=== PATIENT | female | born 1965 | race Caucasian/White ===

== ENCOUNTER → 2018-09-28 | Outpatient (CLI) | payer OTHER ==
--- NOTE | 2018-09-29 08:27 | USB ---
Reason for exam: clinical finding. History: Patient has history of breast cancer at age 40. Mastectomy of both breasts, 2016. Lumpectomy of the right breast, 2015. Taking tamoxifen for 5 years. Indicated problem(s): palpable abnormality in the right breast. Physical Findings: Nurse Summary: palpable lump (nurse dw). US Breast RT Right complete breast ultrasound includes all four quadrants, the retroareolar region and axilla. Finding demonstrates a 0.4 x 0.3 x 0.1cm oval, node at 11 o'clock and a 1.2 x 0.7 x 0.8cm oval node at the axilla. Probable lymph nodes. These results were verbally communicated with the patient and result sheet given to the patient on 09/28/18. ASSESSMENT: Probably benign, BI-RAD 3 RECOMMENDATION: Ultrasound of the right breast in 3 months. Manage patient on a clinical basis.
== END | disposition home or self-care (01) ==
LOC: RADUSWWP 15:17
PROVIDERS: ATTEND Internal Medicine Hematology & Oncology
DX: N63.10 Unspecified lump in the right breast, unspecified quadrant (principal); Z85.3 Personal history of malignant neoplasm of breast; Z98.82 Breast implant status

== ENCOUNTER 2018-11-11 15:33 | Observation (INO) | payer OTHER ==
--- NOTE | 2018-11-11 16:46 | ED ---
General Adult HPI - General Chief complaint: Fever Stated complaint: Lethargic, Fever Time Seen by Provider: 11/11/18 16:02 Source: patient Mode of arrival: ambulatory Limitations: no limitations - History of Present Illness Initial comments: Dictation was produced using [employer] dictation software. please excuse any grammatical, word or spelling errors. Chief Complaint: 63-year-old female with past medical history of breast cancer with metastatic disease presents with chief complaint of feeling faint and fevers. History of Present Illness: 3-year-old female. She was sent in by her primary care physician for fevers. Patient currently undergoing active chemotherapy for breast cancer with metastatic disease. States that her symptoms have been ongoing for the last 2-3 days. She was at her primary care physician's office today when she began feeling faint. She was instructed to come to the emergency department. Patient did have a negative flu swab at her PCPs office. Patient has been having constitutional symptoms of fever, chills or night sweats. Oncologist is Dr. Turner. She's been having coughing. Denies any chest pain. No nausea vomiting or diarrhea. Denies any rashes. The ROS documented in this emergency department record has been reviewed and confirmed by me. Those systems with pertinent positive or negative responses have been documented in the HPI. All other systems are other negative and/or noncontributory. PHYSICAL EXAM: General Impression: Alert and oriented x3, not in acute distress HEENT: Normocephalic atraumatic, extra-ocular movements intact, pupils equal and reactive to light bilaterally, mucous membranes moist. Cardiovascular: Heart regular rate and rhythm, S1&S2 audible, no murmurs, rubs or gallops Chest: Lungs clear to auscultation bilaterally, no rhonchi, no wheeze, no rales, Mediport to the right chest Abdomen: Bowel sounds present, abdomen soft, non-tender, non-distended, no organomegaly Musculoskeletal: Pulses present and equal in all extremities, no peripheral edema Motor: no focal deficits noted Neurological: CN II-XII grossly intact, no focal motor or sensory deficits noted Skin: Intact with no visualized rashes Psych: Normal affect and mood ED course: 53-year-old female with past medical history of cancer, on chemotherapy presents with presyncopal symptoms, fever, chills and when her symptoms. Vital signs upon arrival shows heart rate of 12, respiratory signs within normal limits. Laboratory evaluation obtained. Mild leukopenia with a 30 be seen 3.5. Hemoccult stable at 11.2. Rest of CBC is unremarkable. Coag panel unremarkable. Metabolic panel is negative. Chest x-ray shows no radiographic evidence of pulmonary infection. Patient against having elevated temperatures. At this point no signs of end organ dysfunction in the setting of constitutional symptoms. Given active treatment with chemotherapy there is high degree of concern of possible serious bacterial illness however at this point there is no objective evidence to suggest its source. Patient however clinically is having pulmonary symptoms. There is a potential that patient's symptoms reflect pneumonia without radiographic evidence. Patient given 1 dose of vancomycin and cefepime. Blood cultures and urine cultures are sent. Patient be admitted to the hospital for monitoring, intravenous fluids. Patient be admitted to Dr. Marquez consultation to oncology. EKG interpretation: Ventricular rate 70, normal sinus rhythm,. Interval 150, QRS 74, QTC 417. No SD prolongation, no QTC prolongation, no ST or T-wave changes noted. Overall, this EKG is unremarkable - Related Data Home Medications Medication Instructions Recorded Confirmed Capecitabine [Xeloda] 1,000 mg PO DIRECTED 11/11/18 11/11/18 Capecitabine [Xeloda] 150 mg PO DIRECTED 11/11/18 11/11/18 Iron(Unknown) 1 tab PO DAILY 11/11/18 11/11/18 Multivitamins, Thera [Multivitamin 1 tab PO DAILY 11/11/18 11/11/18 (formulary)] Vitamin D3(Unknown) 1 tab PO DAILY 11/11/18 11/11/18 Xgeva 120 mg SQ Q28D 11/11/18 11/11/18 Allergies Allergy/AdvReac Type Severity Reaction Status Date / Time amoxicillin Allergy Rash/Hives Verified 11/11/18 16:16 Review of Systems ROS Statement: Those systems with pertinent positive or pertinent negative responses have been documented in the HPI. ROS Other: All systems not noted in ROS Statement are negative. Past Medical History Additional Past Medical History / Comment(s): Breast cancer with metastisis to the bone History of Any Multi-Drug Resistant Organisms: None Reported Additional Past Surgical History / Comment(s): Mastectomy (bilateral), lymph nodes removed from right side, meningioma removed, Past Psychological History: No Psychological Hx Reported Smoking Status: Never smoker Past Alcohol Use History: None Reported Past Drug Use History: None Reported General Exam Limitations: no limitations Course Vital Signs 11/11/18 11/11/18 15:44 17:31 Temperature 99.0 F 100.5 F H Pulse Rate 102 H 75 Respiratory 18 18 Rate Blood Pressure 112/68 99/61 O2 Sat by Pulse 97 98 Oximetry Medical Decision Making - Lab Data Result diagrams: 11/11/18 14:35 11/11/18 14:35 Lab Results 11/11/18 11/11/18 11/11/18 Range/Units 14:35 14:35 14:35 WBC 3.5 L (3.8-10.6) k/uL RBC 3.49 L (3.80-5.40) m/uL Hgb 11.2 L (11.4-16.0) gm/dL Hct 33.2 L (34.0-46.0) % MCV 95.3 (80.0-100.0) fL MCH 32.0 (25.0-35.0) pg MCHC 33.6 (31.0-37.0) g/dL RDW 17.0 H (11.5-15.5) % Plt Count 223 (150-450) k/uL Neutrophils % 73 % Lymphocytes % 10 % Monocytes % 12 % Eosinophils % 1 % Basophils % 0 % Neutrophils # 2.6 (1.3-7.7) k/uL Lymphocytes # 0.4 L (1.0-4.8) k/uL Monocytes # 0.4 (0-1.0) k/uL Eosinophils # 0.0 (0-0.7) k/uL Basophils # 0.0 (0-0.2) k/uL Anisocytosis Slight PT 10.6 (9.0-12.0) sec INR 1.0 (<1.2) Sodium 137 (137-145) mmol/L Potassium 4.1 (3.5-5.1) mmol/L Chloride 105 (98-107) mmol/L Carbon Dioxide 22 (22-30) mmol/L Anion Gap 10 mmol/L BUN 20 H (7-17) mg/dL Creatinine 0.55 (0.52-1.04) mg/dL Est GFR (CKD-EPI)AfAm >90 (>60 ml/min/1.73 sqM) Est GFR (CKD-EPI)NonAf >90 (>60 ml/min/1.73 sqM) Glucose 91 (74-99) mg/dL Calcium 8.9 (8.4-10.2) mg/dL Magnesium 2.0 (1.6-2.3) mg/dL Total Bilirubin 0.5 (0.2-1.3) mg/dL AST 90 H (14-36) U/L ALT 54 H (9-52) U/L Alkaline Phosphatase 80 (38-126) U/L Total Protein 6.9 (6.3-8.2) g/dL Albumin 4.0 (3.5-5.0) g/dL Disposition Clinical Impression: Fever, Cough Disposition: ADMITTED IP TO THIS HOSP Condition: Fair Referrals: Mahin Wilkinson DO [Primary Care Provider] - 1-2 days Decision Time: 17:44
[2018-11-11 16:50] LABS: Anisocytosis Slight; Basophils % (A) 0 %; Eosinophils % (A) 1 %; HCT 33.2 % (34.0-46.0); HGB 11.2 gm/dL (11.4-16.0); Lymphocytes # (A) 0.4 k/uL (1.0-4.8); Lymphocytes % (A) 10 %; MCHC 33.6 g/dL (31.0-37.0); MCV 95.3 fL (80.0-100.0); Mean Platelet Volume 6.5; Monocytes # (A) 0.4 k/uL (0-1.0); Monocytes % (A) 12 %; Neutrophils # (A) 2.6 k/uL (1.3-7.7); Neutrophils % (A) 73 %; Platelet Count 223 k/uL (150-450); RBC 3.49 m/uL (3.80-5.40); WBC 3.5 k/uL (3.8-10.6)
[2018-11-11 16:59] LABS: ALT 54 U/L (9-52); AST 90 U/L (14-36); Alkaline Phosphatase 80 U/L (38-126); Anion Gap 10 mmol/L; Blood Urea Nitrogen 20 mg/dL (7-17); Calcium 8.9 mg/dL (8.4-10.2); Carbon Dioxide 22 mmol/L (22-30); Chloride 105 mmol/L (98-107); Glucose 91 mg/dL (74-99); Potassium 4.1 mmol/L (3.5-5.1); Prothrombin Time 10.6 sec (9.0-12.0); Sodium 137 mmol/L (137-145); Total Bilirubin 0.5 mg/dL (0.2-1.3); Total Protein 6.9 g/dL (6.3-8.2)
--- NOTE | 2018-11-11 17:19 | XR ---
EXAMINATION TYPE: XR chest 2V DATE OF EXAM: 11/11/2018 COMPARISON: 04/08/2016 HISTORY: Fever and lethargy TECHNIQUE: Frontal and lateral views of the chest are obtained. FINDINGS: There is no heart failure nor confluent pneumonic infiltrate. Heart size is normal. There is right central venous catheter with the tip in the right atrium. There is no pleural effusion. Ther e is 20% compression deformity of T9 vertebra unchanged. IMPRESSION: No active cardiopulmonary disease. No change.
[2018-11-11] MEDS ORDERED: SODIUM CHLORIDE 0.9% 1,000 ML IV STA (17:24)
[2018-11-11] MEDS ORDERED: ACETAMINOPHEN TAB 500 MG TAB PO STA (17:35)
[2018-11-11] MEDS ORDERED: NALOXONE 0.4 MG/ML 1 ML VIAL IV PRN (17:38)
[2018-11-11] MEDS ORDERED: ONDANSETRON 4 MG/2 ML VIAL IVP PRN (17:38)
[2018-11-11] MEDS ORDERED: ACETAMINOPHEN TAB 325 MG TAB PO PRN (17:38)
[2018-11-11] MEDS ORDERED: CEFEPIME 2 GM in SODIUM CHLORIDE 0.9% 100 ML IVPB STA (17:40)
[2018-11-11] MEDS ORDERED: VANCOMYCIN 1,000 MG in SODIUM CHLORIDE 0.9% 250 ML IVPB STA (17:41)
[2018-11-11 18:11] LABS: Appearance,Urine Clear (Clear); Bilirubin,Urine Negative (Negative); Blood,Urine Negative (Negative); Color,Urine Yellow; Glucose,Urine (UA) Negative (Negative); Ketones,Urine 2+ (Negative); Leukocyte Esterase,Urine Negative (Negative); Nitrite,Urine Negative (Negative); PH, Urine 5.5 (5.0-8.0); Protein,Urine Trace (Negative); Specific Gravity,Urine 1.019 (1.001-1.035); Urobilinogen,Urine <2.0 mg/dL (<2.0)
[2018-11-11] MEDS: SODIUM CHLORIDE 0.9% 1,000 ML IV SCH (18:51)
[2018-11-11] MEDS: CAPECITABINE PO SCH (20:51)
[2018-11-11] MEDS: FAMOTIDINE 20 MG TAB PO SCH (20:51)
[2018-11-12] MEDS: FAMOTIDINE 20 MG TAB PO SCH ×2 (07:01→21:46)
[2018-11-12] MEDS: SODIUM CHLORIDE 0.9% 1,000 ML IV SCH ×2 (07:03→18:26)
[2018-11-12] MEDS: CAPECITABINE PO SCH (09:22)
[2018-11-12 11:21] VITALS: BMI 20.8
[2018-11-12 14:00] LABS: ALT 46 U/L (9-52); AST 71 U/L (14-36); Albumin 3.3 g/dL (3.5-5.0); Alkaline Phosphatase 69 U/L (38-126); Anion Gap 8 mmol/L; Blood Urea Nitrogen 11 mg/dL (7-17); Calcium 7.9 mg/dL (8.4-10.2); Carbon Dioxide 21 mmol/L (22-30); Chloride 112 mmol/L (98-107); Glucose 109 mg/dL (74-99); Potassium 3.7 mmol/L (3.5-5.1); Sodium 141 mmol/L (137-145); Total Bilirubin 0.3 mg/dL (0.2-1.3); Total Protein 5.8 g/dL (6.3-8.2)
[2018-11-12 14:02] LABS: Anisocytosis Slight; Basophils % (A) 1 %; Eosinophils % (A) 1 %; HCT 29.6 % (34.0-46.0); Lymphocytes # (A) 0.5 k/uL (1.0-4.8); Lymphocytes % (A) 18 %; MCH 31.5 pg (25.0-35.0); MCV 95.7 fL (80.0-100.0); Mean Platelet Volume 6.8; Monocytes # (A) 0.3 k/uL (0-1.0); Monocytes % (A) 11 %; Neutrophils # (A) 1.7 k/uL (1.3-7.7); Neutrophils % (A) 68 %; Platelet Count 209 k/uL (150-450); RBC 3.09 m/uL (3.80-5.40); RDW 16.9 % (11.5-15.5); WBC 2.6 k/uL (3.8-10.6)
[2018-11-12 14:06] LABS: HGB 9.7 gm/dL (11.4-16.0)
--- NOTE | 2018-11-12 16:19 | P.CONS ---
History of Present Illness - Reason for Consult Consult date: 11/12/18 Fever, Metastatic breast cancer on chemo - History of Present Illness The patient is a 53-year-old lady, well known to our service. She has a history of metastatic breast cancer, and has been on oral Xeloda since 05/18. The patient came into the hospital complaining of not feeling well over the last 2-3 days. She had been having fevers, and generally feeling weak to the point of occasionally being presyncopal. She states that at home her fevers were as high as 102. She denied any chills/sweats/abdominal pain/cough/burning in the urine/skin ulcers. In the emergency room t T-max was 100.5. His chest x-ray and UA were essentially negative. WBC was mildly reduced but ANC is greater than 1000. She was therefore admitted for further management, and consult placed She has a complicated past medical and surgical history. 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 She had resection of a menigioma in 1993 on the same side, and received stereotactic RT in 1997. 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 She was then on Tamoxifen from 08/04 to 08/09 with good tolerance. She continued f/u with Dr Mclaughlin, and was felt to have no change on exam or mammogram done around 02/12. However, her OB felt that her scar had changed, and there was a new mass. She thus had an US on 03/07/15 which noted a 1.2 x 1 x 1.8 cm irregular ill-defined area at 8 0'clock, underlying her previous scar. She was seen by Dr Calle and had a needle core biopsy in the office on 03/12/15, which was positive for invasive ductal carcinoma, grade II, ER/LA positive, Her- 2 2+ by IHC, but negative by FISH. She was then referred here for further evaluation and recommendations. She was premenopausal at the time of her DCIS diagnosis, and perimenopausal at her visit on 03/29/15. She had bilateral mastectomy 05/15, revealing a 2.5 cm with micrometastasis in 1 axillary node. Genetic testing revealed PALB2 mutation. She was treated with Cytoxan and Taxotere adjuvantly, completing that in 07/15. She was then placed on Femara. She progressed in 08/15, and since then has had multiple lines of therapy, including Faslodex, Ibrance plus Faslodex, Eribulin, and then Xeloda since 05/18. She has bone only metastatic disease. Review of Systems Constitutional: Reports chronic pain, Reports fever, Reports malaise Eyes: denies blurred vision, denies pain Ears: deny: decreased hearing, ear discharge, earache, tinnitus Ears, nose, mouth and throat: Denies headache, Denies sore throat Breasts: absent: as per HPI Breasts: Reports as per HPI Cardiovascular: Denies chest pain, Denies shortness of breath Respiratory: Denies cough Gastrointestinal: Denies abdominal pain, Denies diarrhea, Denies nausea, Denies vomiting Genitourinary: Denies dysuria, Denies hematuria Menstruation: Reports postmenopausal Musculoskeletal: Reports as per HPI Musculoskeletal: right: hip pain Integumentary: Reports color changes (hand foot syndrome due to Xeloda ) Neurological: Denies numbness, Denies weakness Psychiatric: Denies anxiety, Denies depression Endocrine: Reports fatigue Hematologic/Lymphatic: Reports as per HPI 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, ear surgery, facial nerve surgery in [place] History of Any Multi-Drug Resistant Organisms: None Reported Additional Past Surgical History / Comment(s): Mastectomy (bilateral), lymph nodes removed from right side, meningioma removed, Past Anesthesia/Blood Transfusion Reactions: No Reported Reaction Past Psychological History: No Psychological Hx Reported Smoking Status: Never smoker Past Alcohol Use History: None Reported Past Drug Use History: None Reported - Past Family History Mother Family Medical History: Diabetes Mellitus, Thyroid Disorder Medications and Allergies Home Medications Medication Instructions Recorded Confirmed Type Capecitabine [Xeloda] 1,000 mg PO Q12HR 11/11/18 11/11/18 History Capecitabine [Xeloda] 150 mg PO DIRECTED 11/11/18 11/11/18 History Iron(Unknown) 1 tab PO DAILY 11/11/18 11/11/18 History Methimazole 2.5 mg PO DAILY 11/11/18 11/11/18 History Multivitamins, Thera [Multivitamin 1 tab PO DAILY 11/11/18 11/11/18 History (formulary)] Vitamin D3(Unknown) 1 tab PO DAILY 11/11/18 11/11/18 History Xgeva 120 mg SQ Q28D 11/11/18 11/11/18 History Cholecalciferol [Vitamin D3] 1,000 unit PO DAILY 11/12/18 11/12/18 History Ferrous Sulfate [Iron] 1 tab PO DAILY 11/12/18 11/12/18 History Allergies Allergy/AdvReac Type Severity Reaction Status Date / Time amoxicillin Allergy Rash/Hives Verified 11/11/18 16:16 Physical Exam Vitals: Vital Signs Temp Pulse Pulse Resp BP BP Pulse Ox 11/12/18 05:41 98.6 F 79 18 104/65 97 11/11/18 20:59 97.7 F 67 18 98/53 96 11/11/18 18:22 98.8 F 75 16 100/65 99 11/11/18 17:31 100.5 F H 75 18 99/61 98 11/11/18 17:20 16 11/11/18 15:44 99.0 F 102 H 18 112/68 97 Intake and Output 11/11/18 11/12/18 11/12/18 22:59 06:59 14:59 Intake Total 120 Balance 120 Intake: Oral 120 Other: # Voids 2 2 Weight 51.71 kg - Constitutional General appearance: no acute distress - EENT Eyes: EOMI, PERRLA ENT: hearing grossly normal, normal oropharynx - Neck Neck: no lymphadenopathy Thyroid: bilateral: normal size - Respiratory Respiratory: bilateral: CTA - Cardiovascular Rhythm: regular Heart sounds: normal: S1, S2 - Gastrointestinal General gastrointestinal: normal bowel sounds, soft - Integumentary Evidence of hand-foot syndrome affecting both hands and feet. Increased redness, and desquamation. No active ulcers or lacerations - Neurologic Neurologic: CNII-XII intact - Musculoskeletal Musculoskeletal: generalized weakness, strength equal bilaterally - Psychiatric Psychiatric: A&O x's 3, appropriate affect Results CBC & Chem 7: 11/12/18 13:41 11/12/18 13:41 Labs: Abnormal Lab Results - Last 24 Hours (Table) 11/11/18 11/11/18 11/11/18 Range/Units 14:35 14:35 17:47 WBC 3.5 L (3.8-10.6) k/uL RBC 3.49 L (3.80-5.40) m/uL Hgb 11.2 L (11.4-16.0) gm/dL Hct 33.2 L (34.0-46.0) % RDW 17.0 H (11.5-15.5) % Lymphocytes # 0.4 L (1.0-4.8) k/uL BUN 20 H (7-17) mg/dL AST 90 H (14-36) U/L ALT 54 H (9-52) U/L Urine Protein Trace H (Negative) Urine Ketones 2+ H (Negative) Microbiology - Last 24 Hours (Table) 11/11/18 17:47 Urine Culture - Preliminary Urine,Voided Chest x-ray: report reviewed Assessment and Plan (1) Fever Narrative/Plan: The patient is presenting with fever, of unknown origin. She has no localizing signs. Physical exam is fairly benign. Fever pattern has improved since admission. Chest x-ray and urine are negative. OV with empiric antibiotics and blood cultures. If the results, and cultures remain negative, she can be discharged on oral antibiotics. If fever persists with no other source, then additional workup can be considered Current Visit: Yes Status: Acute Code(s): R50.9 - FEVER, UNSPECIFIED SNOMED Code(s): 498406043 (2) Bicytopenia Narrative/Plan: Due to chemotherapy. WBC is reduced but ANC is greater than 1000. Hemoglobin is also in a safe range at 9.6. Continue to monitor and supplement as needed Current Visit: Yes Status: Acute Code(s): D75.89 - OTHER SPECIFIED DISEASES OF BLOOD AND BLOOD-FORMING ORGANS SNOMED Code(s): 808494562 (3) Breast cancer metastasized to bone Narrative/Plan: Diagnostic and therapeutic circumstances as described. Hold Xeloda while in the hospital Current Visit: Yes Status: Acute Code(s): C50.919 - MALIGNANT NEOPLASM OF UNSP SITE OF UNSPECIFIED FEMALE BREAST; C79.51 - SECONDARY MALIGNANT NEOPLASM OF BONE SNOMED Code(s): 046138156
[2018-11-12] MEDS: IBUPROFEN 800 MG TAB PO PRN (19:33)
[2018-11-12] MEDS: OSELTAMIVIR 75 MG CAP PO SCH (21:47)
[2018-11-13] MEDS: SODIUM CHLORIDE 0.9% 1,000 ML IV SCH (06:06)
[2018-11-13] MEDS: FAMOTIDINE 20 MG TAB PO SCH (08:08)
[2018-11-13] MEDS: OSELTAMIVIR 75 MG CAP PO SCH (08:09)
[2018-11-13] MEDS ORDERED: FERROUS SULFATE 325 MG TAB PO SCH (09:00)
[2018-11-13] MEDS ORDERED: CHOLECALCIFEROL 1,000 UNIT TAB PO SCH (09:00)
[2018-11-13] MEDS ORDERED: METHIMAZOLE 5 MG TAB PO SCH (09:00)
[2018-11-13] MEDS: IBUPROFEN 800 MG TAB PO PRN (12:43)
[2018-11-13 13:40] VITALS: BP 154/69; PULSE 77; RESP 18; TEMP 97.7
--- NOTE | 2018-11-19 11:23 | HP ---
HISTORY AND PHYSICAL CHIEF COMPLAINT: A 53-year-old white female was admitted with breast cancer, metastatic disease, feeling faint and feverish, transferred down from physician's office today in the emergency room due to worsening fever and possibly oncology consult and to rule out any kind of sepsis. She states [place] doctor[place]. They will be repeated here today. REVIEW OF SYSTEMS: Fourteen-point review of systems negative except for as mentioned in HPI. EKG sinus rhythm. CARDIOVASCULAR: S1, S2. LUNGS: Clear. GI: Soft. HEMATOLOGY: Negative Homans. PSYCH: Fair mood and affect. NEUROLOGIC: Alert and orient x3. VASCULAR: Normal dorsalis pedis and posterior tibial and radial pulses. Home medications are Xeloda, multivitamins. ASSESSMENT: Acute febrile illness, rule out flu symptoms, rule out sepsis. Empiric antibiotics will be started. AINSLEY / REY: [id number] /
--- NOTE | 2018-11-19 11:59 | DS ---
DISCHARGE SUMMARY DISCHARGE MEDICATIONS: 1. XGEVA 120 mg subcu q. 28 hours. 2. Multivitamin daily. 3. Xeloda 150 mg daily. 4. 1000 mg b.i.d. 5. Methimazole 2.5 mg daily. 6. Iron sulfate 325 daily. 7. Vitamin D 1000 unit daily. CONDITION: Stable. PROGNOSIS: Guarded. Ambulate as tolerated. HOSPITAL COURSE OF EVENTS: This is a white female, was admitted with acute febrile illness and septic workup, flu positive for influenza A. She was started on Tamiflu 75 b.i.d. for 5 days. Patient was ruled out for sepsis. Follow up as outpatient. After treatment for 2 to 3 days, sepsis was ruled out. MMESPINOZAL / MAXIMON: [id number] /
== END 2018-11-13 16:11 | disposition home or self-care (01) ==
LOC: EC 15:33 → 3NMEDONC 18:02 → INTOOBSV 11-12 08:59 → OBSVTOIN 11-12 08:59 → UNDODISIN 11-13 16:11
PROVIDERS: ADMIT Family Medicine; ATTEND Family Medicine
DX: J10.1 Influenza due to other identified influenza virus with other respiratory manifestations (principal); C79.51 Secondary malignant neoplasm of bone; D70.1 Agranulocytosis secondary to cancer chemotherapy; L27.1 Localized skin eruption due to drugs and medicaments taken internally; T45.1X5A Adverse effect of antineoplastic and immunosuppressive drugs, initial encounter; Z17.0 Estrogen receptor positive status [ER+]; C50.919 Malignant neoplasm of unspecified site of unspecified female breast; Z79.83 Long term (current) use of bisphosphonates; Z79.899 Other long term (current) drug therapy; Z88.0 Allergy status to penicillin; Z90.13 Acquired absence of bilateral breasts and nipples; Z86.61 Personal history of infections of the central nervous system; Z86.011 Personal history of benign neoplasm of the brain; Z85.858 Personal history of malignant neoplasm of other endocrine glands; Z92.3 Personal history of irradiation; Z83.3 Family history of diabetes mellitus; Z83.49 Family history of other endocrine, nutritional and metabolic diseases
CPT/HCPCS: 96361 ×3; 96366; 96375; 96365; 96367; 99284; 36415; 93005; 80053 ×2; 83605; 83735; 85025 ×2; 85610; 81003; 87040; 87086; 87502; 71046; G0378 ×4; J3370; J0692; J1642

== ENCOUNTER → 2019-10-13 | Outpatient (CLI) | payer OTHER ==
--- NOTE | 2019-10-13 13:00 | XR ---
EXAMINATION TYPE: XR pelvis AP view DATE OF EXAM: 10/13/2019 CLINICAL HISTORY: Breast carcinoma with pain TECHNIQUE: A single AP view of the pelvis is obtained. COMPARISON: None. FINDINGS: There is mottled appearance of the visualized pelvic osseous structures and proximal femor a as well as the lower lumbar spine compatible with metastatic disease. There is no acute fracture/di slocation evident in the pelvis. The hip and sacroiliac joints appear symmetric and unremarkable. T he overlying soft tissue appears unremarkable. IMPRESSION: There is no acute fracture or dislocation in the pelvis. Findings are compatible with me tastatic disease.
== END | disposition home or self-care (01) ==
LOC: RADXRMAIN 11:17
PROVIDERS: ATTEND Internal Medicine Hematology & Oncology
DX: Z51.11 Encounter for antineoplastic chemotherapy (principal); C50.511 Malignant neoplasm of lower-outer quadrant of right female breast; C79.51 Secondary malignant neoplasm of bone
CPT/HCPCS: 72170

== ENCOUNTER → 2020-01-24 | Outpatient (CLI) | payer OTHER ==
--- NOTE | 2020-01-24 14:21 | US ---
EXAMINATION TYPE: US venous doppler duplex LE RT DATE OF EXAM: 01/24/2020 1:25 PM COMPARISON: NONE CLINICAL HISTORY: Swelling of R lower extremity R22.41. Edema SIDE PERFORMED: Right TECHNIQUE: The lower extremity deep venous system is examined utilizing real time linear array sonog lencho with graded compression, doppler sonography and color-flow sonography. VESSELS IMAGED: External Iliac Vein (EIV) Common Femoral Vein Deep Femoral Vein Greater Saphenous Vein * Femoral Vein Popliteal Vein Small Saphenous Vein * Proximal Calf Veins (* superficial vessels) Grayscale, color doppler, spectral doppler imaging performed of the deep veins of the right lower ext remity. There is normal flow, compressibility, vascular waveforms. Right Leg: Negative for DVT IMPRESSION: No sonographic evidence of deep venous thrombosis within the right lower extremity.
== END | disposition home or self-care (01) ==
LOC: LABWHC1 12:54
PROVIDERS: ATTEND Internal Medicine Hematology & Oncology
DX: R22.41 Localized swelling, mass and lump, right lower limb (principal); Z88.0 Allergy status to penicillin

== ENCOUNTER 2020-02-11 00:21 | Emergency (ER) | payer OTHER ==
[2020-02-11 00:51] VITALS: TEMP 97.7
[2020-02-11] MEDS ORDERED: SODIUM CHLORIDE 0.9% 500 ML 500 ML IV ONE (01:06)
[2020-02-11] MEDS ORDERED: fentaNYL (PF) 50 MCG/ML 2 ML AMP IVP STA ×2 (01:11→02:19)
[2020-02-11] MEDS ORDERED: SODIUM CHLORIDE 0.9% 1,000 ML IV ONE (01:32)
--- NOTE | 2020-02-11 01:34 | XR ---
EXAMINATION TYPE: XR ankle complete LT DATE OF EXAM: 02/11/2020 COMPARISON: NONE HISTORY: Foot pain. Ankle pain TECHNIQUE: 3 views FINDINGS: I see no fracture nor dislocation. Ankle mortise is anatomic. There are surgical clips over the lateral malleolus. There is lateral soft tissue swelling. IMPRESSION: Lateral swelling. No fracture seen.
--- NOTE | 2020-02-11 01:39 | XR ---
EXAMINATION TYPE: XR foot complete LT DATE OF EXAM: 02/11/2020 COMPARISON: None HISTORY: Pain TECHNIQUE: 3 views FINDINGS: Metatarsals are intact. I see no fracture nor dislocation. Joint spaces are fairly normal. There is accessory ossicle at the medial navicular. IMPRESSION: No acute abnormality of the left foot. No fracture seen.
--- NOTE | 2020-02-11 01:40 | XR ---
EXAMINATION TYPE: XR chest 1V DATE OF EXAM: 02/11/2020 COMPARISON: 11/11/2018 HISTORY: Chest pain TECHNIQUE: FINDINGS: Heart and mediastinum are normal. Lungs appear clear of infiltrate. There is right central venous catheter with tip in the superior vena cava. There is no pleural effusion. There are no hilar masses. Bony thorax appears intact. IMPRESSION: No active cardiopulmonary disease. No change.
[2020-02-11 01:46] LABS: Anisocytosis Slight; HCT 34.4 % (34.0-46.0); MCV 96.9 fL (80.0-100.0); Macrocytosis Slight; Mean Platelet Volume 7.1; Platelet Count 266 k/uL (150-450); RBC 3.55 m/uL (3.80-5.40); RDW 17.3 % (11.5-15.5)
[2020-02-11 01:59] LABS: ALT 27 U/L (4-34); AST 124 U/L (14-36); African American GFR (CKD) >90 (>60 ml/min/1.73 sqM); Albumin 3.6 g/dL (3.5-5.0); Alkaline Phosphatase 151 U/L (38-126); Anion Gap 8 mmol/L; Blood Urea Nitrogen 22 mg/dL (7-17); Calcium 9.7 mg/dL (8.4-10.2); Carbon Dioxide 23 mmol/L (22-30); Chloride 103 mmol/L (98-107); Glucose 130 mg/dL (74-99); Magnesium 1.8 mg/dL (1.6-2.3); Non-African American GFR(CKD) >90 (>60 ml/min/1.73 sqM); Phosphorus 3.8 mg/dL (2.5-4.5); Potassium 3.9 mmol/L (3.5-5.1); Sodium 134 mmol/L (137-145); Total Bilirubin 0.4 mg/dL (0.2-1.3); Total Protein 6.4 g/dL (6.3-8.2)
--- NOTE | 2020-02-11 02:07 | US ---
EXAMINATION TYPE: US venous doppler duplex LE DATE OF EXAM: 02/11/2020 1:56 AM COMPARISON: NONE CLINICAL HISTORY: bilateral leg swelling. edema left ankle SIDE PERFORMED: bilateral TECHNIQUE: The lower extremity deep venous system is examined utilizing real time linear array sonog lencho with graded compression, doppler sonography and color-flow sonography. VESSELS IMAGED: External Iliac Vein (EIV) Common Femoral Vein Deep Femoral Vein Greater Saphenous Vein * Femoral Vein Popliteal Vein Small Saphenous Vein * Proximal Calf Veins (* superficial vessels) Right Leg: no evidence of DVT Left Leg: no evidence of DVT IMPRESSION: No evidence of deep vein thrombosis in both legs.
[2020-02-11 02:19] VITALS: RESP 18
[2020-02-11 02:20] VITALS: BP 99/61; PULSE 75
[2020-02-11 02:25] LABS: Band Neutrophils % 16 %; Eosinophils # (M) 0.05 k/uL (0-0.7); Metamyelocytes % 5 %; Myelocytes # (M) 0.05 k/uL (0); Myelocytes % 1 %; Neutrophils % (M) 48 %; Nucleated Red Blood Cells 3 /100 WBC (0-0); Total Cells Counted 200
[2020-02-11 02:26] LABS: Metamyelocytes # (M) 0.25 k/uL (0); Monocytes # (M) 0.75 k/uL (0-1.0)
--- NOTE | 2020-02-11 03:22 | ED ---
General Adult HPI - General Chief complaint: Extremity Problem,Nontraumatic Stated complaint: Left ankle swelling Time Seen by Provider: 02/11/20 00:56 Source: patient, family Mode of arrival: ambulatory Limitations: physical limitation - History of Present Illness Initial comments: 54-year-old female patient past medical history significant for metastatic breast cancer presents ED for chief complaint of left foot and ankle pain. Patient reports that she was very active today helping set up around the house. She reports that approximately 7 PM she began experiencing left ankle pain. Reports that has progressed and now she is having significant discomfort. Patient port that she has some swelling of both of her legs. Reports that this has been ongoing for a period of weeks. She denies any chest pain or shortness of breath. Denies any other areas of pain. Systemic: Pt denies fatigue, fever/chills, rash. Pt denies weakness, night sweats, weight loss. Neuro: Pt denies headache, visual disturbances, syncope or pre-syncope. HEENT: Pt denies ocular discharge or irritation, otalgia, rhinorrhea, pharyngitis or notable lymphadenopathy. Cardiopulmonary: Pt denies chest pain, SOB, heart palpitations, dyspnea on exertion. Abdominal/GI: Pt denies abdominal pain, n/v/d. : Pt denies dysuria, burning w/ urination, frequency/urgency. Denies new onset urinary or bowel incontinence. MSK: Pt denies loss of strength or function in extremities. Neuro: Pt denies new onset weakness, paresthesias. - Related Data Home Medications Medication Instructions Recorded Confirmed Capecitabine [Xeloda] 1,000 mg PO Q12HR 11/11/18 11/11/18 Capecitabine [Xeloda] 150 mg PO DIRECTED 11/11/18 11/11/18 Iron(Unknown) 1 tab PO DAILY 11/11/18 11/11/18 Methimazole 2.5 mg PO DAILY 11/11/18 11/11/18 Multivitamins, Thera [Multivitamin 1 tab PO DAILY 11/11/18 11/11/18 (formulary)] Vitamin D3(Unknown) 1 tab PO DAILY 11/11/18 11/11/18 Xgeva 120 mg SQ Q28D 11/11/18 11/11/18 Cholecalciferol [Vitamin D3] 1,000 unit PO DAILY 11/12/18 11/12/18 Ferrous Sulfate [Iron] 1 tab PO DAILY 11/12/18 11/12/18 Previous Rx's Medication Instructions Recorded Hydrocodone/Acetaminophen [[place] 1 each PO Q6HR PRN 3 Days #12 tab 02/11/20 5-325] Allergies Allergy/AdvReac Type Severity Reaction Status Date / Time amoxicillin Allergy Rash/Hives Verified 02/11/20 00:52 Review of Systems ROS Statement: Those systems with pertinent positive or pertinent negative responses have been documented in the HPI. ROS Other: All systems not noted in ROS Statement are negative. 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, ear surgery, facial nerve surgery in [place] History of Any Multi-Drug Resistant Organisms: None Reported Additional Past Surgical History / Comment(s): Mastectomy (bilateral), lymph nodes removed from right side, meningioma removed, Past Anesthesia/Blood Transfusion Reactions: No Reported Reaction Past Psychological History: No Psychological Hx Reported Smoking Status: Never smoker Past Alcohol Use History: None Reported Past Drug Use History: None Reported - Past Family History Mother Family Medical History: Diabetes Mellitus, Thyroid Disorder General Exam - General Exam Comments Initial Comments: Constitutional: NAD, AOX3, Pt has pleasant affect. HEENT: NC/AT, trachea midline, neck supple, no lymphadenopathy. Posterior pharynx non erythematous, without exudates. External ears appear normal, without discharge. Mucous membranes moist. Eyes PERRLA, EOM intact. There is no scleral icterus. No pallor noted. Cardiopulmonary: RRR, no murmurs, rubs or gallops, no JVD noted. Lungs CTAB in anterior and posterior chicas. Abdominal exam: Abdomen soft and non-distended. Abdomen non-tender to palpation in all 4 quadrants. Bowel sounds active in LLQ. No hepatosplenomegaly. No ecchymosis Neuro: CN II-XII grossly intact. No nuchal rigidity. No raccon eyes, no dunbar sign, no hemotympanum. No cervical spinal tenderness. MSK: Left ankle tender to palpation. No skin changes. Neurovascularly intact. Posterior tibialis pulse +2. Full active ROM in upper and lower extremities, 5/5 stregnth. Limitations: physical limitation Course Vital Signs 02/11/20 02/11/20 02/11/20 00:47 00:52 01:30 Temperature 97.7 F Pulse Rate 68 76 Respiratory 22 18 Rate Blood Pressure 71/42 68/48 97/57 O2 Sat by Pulse 97 98 Oximetry 02/11/20 02:19 Temperature Pulse Rate 75 Respiratory 18 Rate Blood Pressure 99/61 O2 Sat by Pulse 98 Oximetry Medical Decision Making - Medical Decision Making 54-year-old female patient past medical history significant for metastatic breast cancer presents ED for chief complaint of left foot and ankle pain. Patient reports that she was very active today helping set up around the house. She reports that approximately 7 PM she began experiencing left ankle pain. Reports that has progressed and now she is having significant discomfort. Patient port that she has some swelling of both of her legs. Reports that this has been ongoing for a period of weeks. She denies any chest pain or shortness of breath. Denies any other areas of pain. Patient vital signs did display hypotension. Patient vital signs improved without intervention. Lymph investigations are nonimmpressive. Plain film ankle display lateral swelling no fracture seen. Plain film of food did not display any acute process. Chest x- ray did not display any acute process. Ultrasound venous Doppler lower extremities bilaterally did not display any evidence of DVT. Patient pain is improved. Pt does want to be discharged. Patient will be discharged with pain medication and will follow up with primary care provider will return to ER if condition worsens. Case discussed with Dr. Thompson. - Lab Data Result diagrams: 02/11/20 01:30 02/11/20 01:30 Lab Results 02/11/20 02/11/20 02/11/20 Range/Units 01:30 01:30 01:30 WBC 5.0 (3.8-10.6) k/uL RBC 3.55 L (3.80-5.40) m/uL Hgb 11.0 L (11.4-16.0) gm/dL Hct 34.4 (34.0-46.0) % MCV 96.9 (80.0-100.0) fL MCH 31.0 (25.0-35.0) pg MCHC 32.0 (31.0-37.0) g/dL RDW 17.3 H (11.5-15.5) % Plt Count 266 (150-450) k/uL Neutrophils % (Manual) 48 % Band Neutrophils % 16 % Lymphocytes % (Manual) 14 % Monocytes % (Manual) 15 % Eosinophils % (Manual) 1 % Metamyelocytes % 5 % Myelocytes % 1 % Neutrophils # (Manual) 3.20 (1.3-7.7) k/uL Lymphocytes # (Manual) 0.70 L (1.0-4.8) k/uL Monocytes # (Manual) 0.75 (0-1.0) k/uL Eosinophils # (Manual) 0.05 (0-0.7) k/uL Metamyelocytes # (Man) 0.25 H (0) k/uL Myelocytes # (Manual) 0.05 H (0) k/uL Nucleated RBCs 3 H (0-0) /100 WBC Manual Slide Review Performed Anisocytosis Slight Macrocytosis Slight Sodium 134 L (137-145) mmol/L Potassium 3.9 (3.5-5.1) mmol/L Chloride 103 (98-107) mmol/L Carbon Dioxide 23 (22-30) mmol/L Anion Gap 8 mmol/L BUN 22 H (7-17) mg/dL Creatinine 0.71 (0.52-1.04) mg/dL Est GFR (CKD-EPI)AfAm >90 (>60 ml/min/1.73 sqM) Est GFR (CKD-EPI)NonAf >90 (>60 ml/min/1.73 sqM) Glucose 130 H (74-99) mg/dL Calcium 9.7 (8.4-10.2) mg/dL Phosphorus 3.8 (2.5-4.5) mg/dL Magnesium 1.8 (1.6-2.3) mg/dL Total Bilirubin 0.4 (0.2-1.3) mg/dL AST 124 H (14-36) U/L ALT 27 (4-34) U/L Alkaline Phosphatase 151 H (38-126) U/L Troponin I (0.000-0.034) ng/mL NT-Pro-B Natriuret Pep 497 pg/mL Total Protein 6.4 (6.3-8.2) g/dL Albumin 3.6 (3.5-5.0) g/dL 02/11/20 Range/Units 01:30 WBC (3.8-10.6) k/uL RBC (3.80-5.40) m/uL Hgb (11.4-16.0) gm/dL Hct (34.0-46.0) % MCV (80.0-100.0) fL MCH (25.0-35.0) pg MCHC (31.0-37.0) g/dL RDW (11.5-15.5) % Plt Count (150-450) k/uL Neutrophils % (Manual) % Band Neutrophils % % Lymphocytes % (Manual) % Monocytes % (Manual) % Eosinophils % (Manual) % Metamyelocytes % % Myelocytes % % Neutrophils # (Manual) (1.3-7.7) k/uL Lymphocytes # (Manual) (1.0-4.8) k/uL Monocytes # (Manual) (0-1.0) k/uL Eosinophils # (Manual) (0-0.7) k/uL Metamyelocytes # (Man) (0) k/uL Myelocytes # (Manual) (0) k/uL Nucleated RBCs (0-0) /100 WBC Manual Slide Review Anisocytosis Macrocytosis Sodium (137-145) mmol/L Potassium (3.5-5.1) mmol/L Chloride (98-107) mmol/L Carbon Dioxide (22-30) mmol/L Anion Gap mmol/L BUN (7-17) mg/dL Creatinine (0.52-1.04) mg/dL Est GFR (CKD-EPI)AfAm (>60 ml/min/1.73 sqM) Est GFR (CKD-EPI)NonAf (>60 ml/min/1.73 sqM) Glucose (74-99) mg/dL Calcium (8.4-10.2) mg/dL Phosphorus (2.5-4.5) mg/dL Magnesium (1.6-2.3) mg/dL Total Bilirubin (0.2-1.3) mg/dL AST (14-36) U/L ALT (4-34) U/L Alkaline Phosphatase (38-126) U/L Troponin I <0.012 (0.000-0.034) ng/mL NT-Pro-B Natriuret Pep pg/mL Total Protein (6.3-8.2) g/dL Albumin (3.5-5.0) g/dL - EKG Data -: EKG Interpreted by Me (and Dr. Thompson ) EKG Comments: Ventricular rate 77, painful 148, QRS 84, QT/QTC 376/425. Normal sinus rhythm, normal EKG no concern for acute ischemia. Disposition Clinical Impression: Ankle pain, left Disposition: HOME SELF-CARE Condition: Stable Instructions (If sedation given, give patient instructions): Arthralgia (ED) Additional Instructions: Follow up with PCP tomorrow. May use pain medication every 6 hours as needed. Use crutches as needed. Return to ED if condition worsens in anyway. Prescriptions: Hydrocodone/Acetaminophen [[place] 5-325] 1 each PO Q6HR PRN 3 Days #12 tab PRN Reason: Pain Is patient prescribed a controlled substance at d/c from ED?: Yes When asked, does pt state using other controlled substances?: No If prescribed controlled substance>3 days was MAPS reviewed?: Prescribed <3 Days If opioid is for acute pain is fill amount 7 days or less?: No If Rx opioid, was Start Talking consent form obtained?: No Referrals: Mahin Wilkinson DO [Primary Care Provider] - 1-2 days
== END 2020-02-11 03:55 | disposition home or self-care (01) ==
LOC: EC 00:21
DX: M25.572 Pain in left ankle and joints of left foot (principal); M79.672 Pain in left foot; M79.89 Other specified soft tissue disorders; I95.9 Hypotension, unspecified; Z79.899 Other long term (current) drug therapy; Z88.0 Allergy status to penicillin; Z92.21 Personal history of antineoplastic chemotherapy; Z92.3 Personal history of irradiation; Z85.830 Personal history of malignant neoplasm of bone; Z90.13 Acquired absence of bilateral breasts and nipples; Z85.3 Personal history of malignant neoplasm of breast
CPT/HCPCS: 36415; 93005; 83880; 80053; 83735; 84100; 84484; 85025; 73610; 73630; 71045; 93970; 99284; 96374; 96376; 96361 ×2; J3010

== ENCOUNTER → 2020-05-29 | Outpatient (CLI) | payer OTHER ==
[2020-05-29 09:12] LABS: African American GFR (CKD) >90 (>60 ml/min/1.73 sqM); Blood Urea Nitrogen 12 mg/dL (7-17); Non-African American GFR(CKD) >90 (>60 ml/min/1.73 sqM)
--- NOTE | 2020-05-30 21:05 | CT ---
EXAMINATION TYPE: CT ChestAbdPelvis w con DATE OF EXAM: 05/29/2020 INDICATION: Breast cancer COMPARISON: None. No prior CTs or PET scans are available at this location. CT DLP: 498.80 mGycm CONTRAST: Performed with Oral Contrast and with IV Contrast, patient injected with 100 ml mL of Isovue 300. TECHNIQUE: Axial images at 5 mm thick sections. Reconstructed images in the coronal plane. Delayed images through the kidneys. FINDINGS: CT CHEST: Bilateral breast prostheses are present. Portion of the thyroid visualized is normal. No suspicious lung nodules or focal infiltrates are present. No enlarged mediastinal or hilar adenopathy is evident. The ascending aorta diameter at the level of the main pulmonary artery is 3.2 cm. The main pulmonary artery diameter at the bifurcation is 2.[address] ABDOMEN: Liver: There is extensive irregular hypodensities scattered through the left and right lobes of the l iver compatible with metastatic disease. Arteries in the right lobe measures 2.7 cm. Largest in the l eft lobe appears to be 2.4 cm. Spleen: Normal Pancreas: Normal Adrenal glands: The adrenal glands are normal. Gallbladder: Normal Kidneys: No masses are evident. No hydronephrosis is present. No cysts are present. Delayed images were obtained through the kidneys, which remain unremarkable. Aorta: Normal Inferior vena cava: Normal. CT PELVIS: Loops of bowel within the abdomen and pelvis are normal. There are loops of bowel which are incom pletely distended or lack oral contrast limiting their evaluation. Appendix: Not visualized. No suspicious tubular structures or inflammatory changes are evident. Urinary bladder: Normal. Genitourinary structures: Uterus appears unremarkable. Adnexal regions are normal. Osseous structures: Diffuse sclerotic metastases are present through the axial skeleton through the p trupti and within the proximal femurs and within scattered ribs. Sternum is involved. There is involve ment of the humeri and clavicles. IMPRESSIONS: 1. Extensive osseous changes throughout the axial and appendicular skeleton within the [id number] compatible sclerotic metastases. 2. Ill-defined hypodensities throughout left and right lobes of the liver which can be compatible wit h metastatic disease.
== END | disposition home or self-care (01) ==
LOC: RADPROMAIN 08:24
PROVIDERS: ATTEND Internal Medicine Hematology & Oncology
DX: C50.511 Malignant neoplasm of lower-outer quadrant of right female breast (principal); R93.7 Abnormal findings on diagnostic imaging of other parts of musculoskeletal system; R93.2 Abnormal findings on diagnostic imaging of liver and biliary tract; Z88.0 Allergy status to penicillin
CPT/HCPCS: 82565; 84520; 71260; 74177; J1642; Q9967

== ENCOUNTER → 2020-06-22 | Outpatient (CLI) | payer OTHER ==
--- NOTE | 2020-06-24 09:05 | MR ---
EXAMINATION TYPE: MR brain wo/w con DATE OF EXAM: 06/22/2020 COMPARISON: None at this institution. HISTORY: Slurred speech, rt sided weakness. Hx breast cancer/brain surgery TECHNIQUE: Multiplanar, multisequence images of the brain and brainstem is performed without and with IV contras t, utilizing 5 mL intravenous Gadavist . FINDINGS: Diffusion weighted images demonstrate no evidence of a recent infarct or other diffusion ab normality. There is mild ventricular and sulcal prominence. Scattered areas of T2 hyperintensity thr oughout the white matter are present. Midline structures demonstrate normal morphology. The craniocervical junction appears within normal limits. Postcontrast images show multiple foci of enhancement consistent with diffuse metastatic disease give n patient's history of breast cancer. For reference there is 7 x 6 mm left frontal lesion axial image 52. There are multiple punctate and r im-enhancing lesions in the cerebellar hemisphere bilaterally. There is artifact from low right occip ital surgery with a rounded 7 mm enhancing focus axial image 11. There is ovoid extra-axial 2.7 x 1.3 cm slightly heterogeneous enhancing right frontal lesion axial image 61 with some adjacent dural nod ularity. There is mild bilateral frontal dural linear enhancement. There is similar heterogeneous enh ancing lesion medial posterior left occipital lobe measuring 12 x 9 mm axial image 16. CSF prominence inferior right cerebellar region with inferior extension presumed product of surgery at this level. There is mucous retention cyst or polyp in the inferior left maxillary sinus. The globes are intact b ilaterally. IMPRESSION: Diffuse metastatic disease. Extra-axial lesions are of different pattern, probable mening iomas. Other etiology not excluded. Evidence of prior low right cerebellar surgery. Background mild d iffuse cerebral atrophy and mild chronic small vessel ischemic change.
== END | disposition home or self-care (01) ==
LOC: RADMRIMAIN 17:52
PROVIDERS: ATTEND Internal Medicine Hematology & Oncology
DX: G31.9 Degenerative disease of nervous system, unspecified (principal); G93.89 Other specified disorders of brain; I67.82 Cerebral ischemia; C50.511 Malignant neoplasm of lower-outer quadrant of right female breast
CPT/HCPCS: 70553; A9585

== ENCOUNTER → 2020-08-29 | Outpatient (CLI) | payer OTHER ==
[2020-08-29 12:20] LABS: African American GFR (CKD) >90 (>60 ml/min/1.73 sqM); Blood Urea Nitrogen 8 mg/dL (7-17); Non-African American GFR(CKD) >90 (>60 ml/min/1.73 sqM)
--- NOTE | 2020-08-29 16:43 | CT ---
EXAMINATION TYPE: CT ChestAbdPelvis w con DATE OF EXAM: 08/29/2020 COMPARISON: CT chest abdomen pelvis 05/29/2020 HISTORY: Follow up breast cancer. CT DLP: 446.1 mGycm Automated exposure control for dose reduction was used. CONTRAST: CT scan of the chest, abdomen and pelvis is performed with Oral Contrast and with IV Contrast, patien t injected with 100 mL of Isovue 300. FINDINGS:1 bilateral breast prostheses are present. Surgical clips noted in the proximal lower extrem ities LUNGS: The lungs are grossly clear, there is no concerning parenchymal mass or nodule identified. T here is no pleural effusion or pneumothorax seen. The tracheobronchial tree is patent. MEDIASTINUM: There are no greater than 1 cm hilar or mediastinal lymph nodes. Retrocaval pretrachea l node somewhat more dense than on prior but have slightly decreased in size now measuring 9 mm as to prior exam when it measured 11 mm. No pericardial effusion is seen. AORTA: There is a left arch with aberrant right subclavian artery coursing in the retroesophageal lo cation. OTHER: Port is present in the right pectoral region and courses via a subclavian approach and tip ri ght atrium. Left axillary node shows a measurement of approximately 8 mm and is somewhat dense, this was not seen on prior exam, axial image #19, additional node seen in the left axilla axial image 14 n ot seen definitively on prior. LIVER/GB: Liver shows diffuse hypoattenuating lesions throughout similar to prior exam, the lesions a re poorly defined and not readily measured. There are multiple lesions which appear less dense than o n prior exam. PANCREAS: No significant abnormality is seen. SPLEEN: No significant abnormality is seen. ADRENALS: No significant abnormality is seen. KIDNEYS: Bilateral hydronephrosis is present which is progressed as compared to prior exam.. REPRODUCTIVE ORGANS: No gross abnormality seen. BOWEL: No significant abnormality is seen. FREE AIR: No Free Air visible. ASCITES: There is some fluid in the pelvis which was not previously identified.. RETROPERITONEAL ADENOPATHY: No retroperitoneal adenopathy is seen. LYMPH NODES: No greater than 1 cm abdominal or pelvic lymph nodes are appreciated. URINARY BLADDER: Cystocele is present. PELVIC ADENOPATHY: None visualized. OSSEOUS STRUCTURES: Diffuse sclerosis of the skeleton is again noted.. IMPRESSION: Difficult to state with certainty as to whether there is been any progression compared to prior exam, findings consistent with treated disease. Hydronephrosis in the bilateral kidneys is lik james progressed. No source of the ureteral obstruction identified. Minimal fluid present within the pe lvis. Left axillary nodes not enlarged but shows interval increase conspicuity
== END | disposition home or self-care (01) ==
LOC: RADCTMAIN 11:34
PROVIDERS: ATTEND Internal Medicine Hematology & Oncology
DX: N13.30 Unspecified hydronephrosis (principal); C79.51 Secondary malignant neoplasm of bone; C50.511 Malignant neoplasm of lower-outer quadrant of right female breast; Z88.1 Allergy status to other antibiotic agents
CPT/HCPCS: 82565; 84520; 71260; 74177; J1642; Q9967

== ENCOUNTER → 2020-09-12 | Outpatient (CLI) | payer OTHER ==
--- NOTE | 2020-09-12 12:55 | MR ---
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 History of breast cancer. TECHNIQUE: Multiplanar, multisequence images of the brain and brainstem were acquired before and aft er administration of 4.5 mL IV Gadavist. Diffusion weighted imaging is performed. FINDINGS: Diffuse diminished signal intensity of the calvarial marrow and visualized upper cervical spine. Redemonstrated postsurgical resection change along the inferior posterior right skull base in the reg ion of the cerebellum. Numerous enhancing foci redemonstrated within the cerebellum: - Dominant lesion left paramedian cerebellar hemisphere measures 1.3 x 0.9 cm versus 1.3 x 1.2 cm, pr eviously. - Dominant lesion inferior posterior right cerebellar hemisphere measures 5 mm versus 8 mm, previousl y. Small enhancing foci redemonstrated in the supratentorial region as well: - A cortical lesion anterior left frontal lobe measures 6 mm versus 8 mm, previously. - In the left avila radiata measures 5 mm versus 7 mm, previously. - Ring-enhancing lesion posterior left frontal lobe measures 1.3 cm, unchanged in size but now with t hinner peripheral rim of enhancement. - Large heterogeneously enhancing extra-axial lesion anterior right frontal convexity measures 2.9 cm , not significantly changed in size but now with more heterogeneous with an enlarging cystic area inf eriorly measuring up to 1.1 cm. - Along the right sylvian fissure is 3 mm versus 7 mm, previously. Numerous additional punctate foci seen previously either no longer enhance or have decreased in size. Localized vasogenic edema anterior frontal lobe and lateral left frontal lobe shows slight interval i ncrease. Similarly, some localized edema within the anterior right cerebellar hemisphere. There is no hydrocephalus, midline shift, or effacement of basal cisterns. Large mucosal retention cyst within the left maxillary sinus and smaller along the floor of the right maxillary sinus. Opacification of the left mastoid air cells. Some layering fluid suggested within t he right mastoid resection cavity. Moderate mucosal thickening throughout the ethmoid air cells and r ight frontal sinus. IMPRESSION: 1. Redemonstrated diffuse intracranial metastases. Previously seen punctate enhancing foci are either smaller or have resolved. Other larger lesions have also remained the same or are smaller, the major ity have decreased in size with some sales representative health insurance lesions outlined above. Residual disease remains. 2. Large 2.9 cm extra-axial mass along the right frontal region has not significantly changed in size but now shows more heterogeneous enhancement and an enlarging cystic region inferiorly, probably kavin e degree of partial treatment response. 3. A few localized areas of vasogenic edema suggested in the anterior right frontal lobe, lateral lef t frontal lobe, and right cerebellar hemisphere has slightly increased. No midline shift, hydrocephal us, or herniation. 4. Post surgical change along the inferior right cerebellum redemonstrated. 5. Diffuse decreased bone marrow signal. This could represent red marrow hyperplasia in the setting o f marrow stimulating agent. Diffuse osseous metastatic disease is the alternative consideration.
== END | disposition home or self-care (01) ==
LOC: RADMRIMAIN 10:47
PROVIDERS: ATTEND Radiology Radiation Oncology
DX: C79.31 Secondary malignant neoplasm of brain (principal); C50.411 Malignant neoplasm of upper-outer quadrant of right female breast; C79.51 Secondary malignant neoplasm of bone
CPT/HCPCS: 70553; J1642; A9585

== ENCOUNTER 2020-10-21 20:52 | Inpatient (IN) | payer OTHER ==
[2020-10-21] MEDS ORDERED: HYDROmorphone 1 MG/ML 1 ML SYRINGE IVP STA (21:43)
[2020-10-21] MEDS ORDERED: SODIUM CHLORIDE 0.9% 1,000 ML IV STA (21:43)
[2020-10-21] MEDS ORDERED: ONDANSETRON 4 MG/2 ML VIAL IVP STA (21:43)
--- NOTE | 2020-10-21 22:03 | ED ---
General Adult HPI - General Chief complaint: Abdominal Pain Stated complaint: no appetite/abd swelling Time Seen by Provider: 10/21/20 21:06 Source: patient Mode of arrival: wheelchair - History of Present Illness Initial comments: 55-year-old female patient with past medical history significant for breast cancer with metastasis to bone and brain presents to the emergency department today for evaluation of generalized abdominal pain with bloating. She is also experiencing decreased appetite with decreased food intake. Her oncologist Dr. Turner has stopped chemo due to it being ineffective, they are potentially starting a new therapy but have not heard yet. states that her symptoms started about 4-5 days ago and have gradually worsened. He denies any fever or chills. Denies vomiting. States she has several small bowel movements daily which is normal for her. She has had two today. He denies any black or bloody stool. He also reports an increase in confusion. States that episodes like she'll be sitting up and ask to sit up or be laying down and ask to lay down. Patient denies any recent rash, cough, shortness of breath, chest pain, back pain, numbness, tingling, dizziness, weakness, hematuria, dysuria, urinary urgency, urinary frequency, headache, visual changes, or any other complaints. - Related Data Home Medications Medication Instructions Recorded Confirmed Multivitamins, Thera [Multivitamin 1 tab PO DAILY 11/11/18 10/21/20 (formulary)] Cholecalciferol [Vitamin D3] 1,000 unit PO DAILY 11/12/18 10/21/20 Calcitonin-[place] 200 Un/[place] 1 spray NASAL DAILY 10/21/20 10/21/20 Hydrocodone/Acetaminophen [[place] 1 tab PO Q6HR PRN 10/21/20 10/21/20 5-325] Iron 18 mg PO DAILY 10/21/20 10/21/20 Levothyroxine Sodium [Synthroid] 25 mcg PO DAILY 10/21/20 10/21/20 Xgeva 120mg/1.7 Ml Vial 120 mg SQ Q30D 10/21/20 10/21/20 Zolpidem [Ambien] 5 mg PO HS PRN 10/21/20 10/21/20 diphenhydrAMINE HCL [Benadryl] 25 mg PO DAILY PRN 10/21/20 10/21/20 Allergies Allergy/AdvReac Type Severity Reaction Status Date / Time amoxicillin Allergy Rash/Hives Verified 10/21/20 23:10 Review of Systems ROS Statement: Those systems with pertinent positive or pertinent negative responses have been documented in the HPI. ROS Other: All systems not noted in ROS Statement are negative. 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, ear surgery, facial nerve surgery in [place] History of Any Multi-Drug Resistant Organisms: None Reported Additional Past Surgical History / Comment(s): Mastectomy (bilateral), lymph nodes removed from right side, meningioma removed, Past Anesthesia/Blood Transfusion Reactions: No Reported Reaction Past Psychological History: No Psychological Hx Reported Past Alcohol Use History: None Reported Past Drug Use History: None Reported - Past Family History Mother Family Medical History: Diabetes Mellitus, Thyroid Disorder General Exam General appearance: alert, in no apparent distress, cachectic, other (Physical well-developed, ill-appearing adult female in no acute distress. Vital signs upon presentation are temperature 98.7F, pulse 108, respirations 16, blood pressure 100/66, pulse ox 99% on room air.) Eye exam: Present: normal appearance, PERRL, EOMI. Absent: scleral icterus, conjunctival injection, periorbital swelling ENT exam: Present: normal exam, mucous membranes moist Respiratory exam: Present: normal lung sounds bilaterally. Absent: respiratory distress, wheezes, rales, rhonchi, stridor Cardiovascular Exam: Present: regular rate, normal rhythm, normal heart sounds. Absent: systolic murmur, diastolic murmur, rubs, gallop, clicks GI/Abdominal exam: Present: soft, distended, tenderness (Over the upper abdomen), normal bowel sounds. Absent: guarding, rebound, rigid Neurological exam: Present: alert, oriented X3, CN II-XII intact Psychiatric exam: Present: normal affect, normal mood Skin exam: Present: warm, dry, intact, normal color. Absent: rash Course Vital Signs 10/21/20 10/21/20 10/21/20 20:57 22:03 23:57 Temperature 98.7 F Pulse Rate 108 H 85 75 Respiratory 16 16 16 Rate Blood Pressure 100/66 129/86 113/69 O2 Sat by Pulse 99 98 Oximetry EKG Findings - EKG Comments: EKG Findings:: EKG obtained at 2257 shows normal sinus rhythm with prolonged QT interval. Ventricular rate is 73, CO interval 136, QRS duration 74, QT 426, QTc 469. No evidence of ST elevation or depression. Medical Decision Making - Medical Decision Making 55-year-old female patient with past mental history significant for metastatic breast cancer presents to the emergency department for 4-5 day history of increasing abdominal pain, decreased appetite, abdominal distention. Physical examination did reveal upper abdominal tenderness. Labs reviewed and did reveal elevated BUN 89 and creatinine at 4.9 which is new for the patient. CT abdomen and pelvis without contrast was obtained and showed evidence for increasing ascites and bilateral pleural effusions. Patient was given IV fluids. She'll be admitted to the hospital for further evaluation. 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 I did discuss findings and results with the patient and her , they are agreeable to admission. Case was discussed with my attending Dr. Gaines. - Lab Data Result diagrams: 10/21/20 22:55 10/21/20 22:55 Lab Results 10/21/20 10/21/20 10/21/20 Range/Units 22:55 22:55 22:55 WBC 8.2 (3.8-10.6) k/uL RBC 3.22 L (3.80-5.40) m/uL Hgb 9.5 L (11.4-16.0) gm/dL Hct 29.7 L (34.0-46.0) % MCV 92.4 (80.0-100.0) fL MCH 29.4 (25.0-35.0) pg MCHC 31.8 (31.0-37.0) g/dL RDW 20.5 H (11.5-15.5) % Plt Count 270 (150-450) k/uL MPV 7.9 Neutrophils % 85 % Lymphocytes % 6 % Monocytes % 5 % Eosinophils % 1 % Basophils % 1 % Neutrophils # 7.0 (1.3-7.7) k/uL Lymphocytes # 0.5 L (1.0-4.8) k/uL Monocytes # 0.5 (0-1.0) k/uL Eosinophils # 0.1 (0-0.7) k/uL Basophils # 0.1 (0-0.2) k/uL Hypochromasia Moderate Poikilocytosis Slight Anisocytosis Moderate Sodium 138 (137-145) mmol/L Potassium 4.6 (3.5-5.1) mmol/L Chloride 106 (98-107) mmol/L Carbon Dioxide 14 L (22-30) mmol/L Anion Gap 18 mmol/L BUN 89 H (7-17) mg/dL Creatinine 4.90 H (0.52-1.04) mg/dL Est GFR (CKD-EPI)AfAm 11 (>60 ml/min/1.73 sqM) Est GFR (CKD-EPI)NonAf 9 (>60 ml/min/1.73 sqM) Glucose 80 (74-99) mg/dL Plasma Lactic Acid Jefry 1.0 (0.7-2.0) mmol/L Calcium 7.7 L (8.4-10.2) mg/dL Total Bilirubin 0.8 (0.2-1.3) mg/dL AST 311 H (14-36) U/L ALT 26 (4-34) U/L Alkaline Phosphatase 992 H (38-126) U/L Troponin I (0.000-0.034) ng/mL Total Protein 6.1 L (6.3-8.2) g/dL Albumin 2.9 L (3.5-5.0) g/dL Amylase 61 (30-110) U/L Lipase 260 (23-300) U/L 10/21/20 Range/Units 22:55 WBC (3.8-10.6) k/uL RBC (3.80-5.40) m/uL Hgb (11.4-16.0) gm/dL Hct (34.0-46.0) % MCV (80.0-100.0) fL MCH (25.0-35.0) pg MCHC (31.0-37.0) g/dL RDW (11.5-15.5) % Plt Count (150-450) k/uL MPV Neutrophils % % Lymphocytes % % Monocytes % % Eosinophils % % Basophils % % Neutrophils # (1.3-7.7) k/uL Lymphocytes # (1.0-4.8) k/uL Monocytes # (0-1.0) k/uL Eosinophils # (0-0.7) k/uL Basophils # (0-0.2) k/uL Hypochromasia Poikilocytosis Anisocytosis Sodium (137-145) mmol/L Potassium (3.5-5.1) mmol/L Chloride (98-107) mmol/L Carbon Dioxide (22-30) mmol/L Anion Gap mmol/L BUN (7-17) mg/dL Creatinine (0.52-1.04) mg/dL Est GFR (CKD-EPI)AfAm (>60 ml/min/1.73 sqM) Est GFR (CKD-EPI)NonAf (>60 ml/min/1.73 sqM) Glucose (74-99) mg/dL Plasma Lactic Acid Jef[place] (0.7-2.0) mmol/L Calcium (8.4-10.2) mg/dL Total Bilirubin (0.2-1.3) mg/dL AST (14-36) U/L ALT (4-34) U/L Alkaline Phosphatase (38-126) U/L Troponin I <0.012 (0.000-0.034) ng/mL Total Protein (6.3-8.2) g/dL Albumin (3.5-5.0) g/dL Amylase (30-110) U/L Lipase (23-300) U/L - Radiology Data Radiology results: report reviewed, image reviewed CT abdomen and pelvis is obtained. Without contrast. Report was reviewed in its entirety. Impression by Dr. Webster shows compared to last exam there is developed a mild to moderate bilateral pleural effusions. There is moderate abdominal ascites that is significantly increased compared to old exam. Do not see evidence of a bowel traction. There is gas down to the rectum. There is bilateral hydronephrosis and hydroureter. Ureters are not well evaluated due to ascites fluid. No shucking mass seen. Hydronephrosis increased compared to old exam. Diffuse hepatic metastatic disease. 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 Disposition Clinical Impression: Acute kidney injury, Renal failure, Ascites, Bilateral pleural effusion Disposition: ADMITTED IP TO THIS [facility] Condition: Serious Referrals: Mahin Wilkinson DO [Primary Care Provider] - 1-2 days Decision to Admit Reason: Admit from EC Decision Date: 10/22/20 Decision Time: 00:29
[2020-10-21 23:02] LABS: Anisocytosis Moderate; Basophils # (A) 0.1 k/uL (0-0.2); Basophils % (A) 1 %; Eosinophils # (A) 0.1 k/uL (0-0.7); Eosinophils % (A) 1 %; HCT 29.7 % (34.0-46.0); HGB 9.5 gm/dL (11.4-16.0); Hypochromasia Moderate; Lymphocytes # (A) 0.5 k/uL (1.0-4.8); Lymphocytes % (A) 6 %; MCH 29.4 pg (25.0-35.0); MCHC 31.8 g/dL (31.0-37.0); MCV 92.4 fL (80.0-100.0); Mean Platelet Volume 7.9; Monocytes # (A) 0.5 k/uL (0-1.0); Monocytes % (A) 5 %; Neutrophils % (A) 85 %; Platelet Count 270 k/uL (150-450); Poikilocytosis Slight; RBC 3.22 m/uL (3.80-5.40); RDW 20.5 % (11.5-15.5); WBC 8.2 k/uL (3.8-10.6)
[2020-10-21 23:13] LABS: Albumin 2.9 g/dL (3.5-5.0); Calcium 7.7 mg/dL (8.4-10.2); Potassium 4.6 mmol/L (3.5-5.1); Total Bilirubin 0.8 mg/dL (0.2-1.3); Total Protein 6.1 g/dL (6.3-8.2)
[2020-10-21] MEDS ORDERED: SODIUM CHLORIDE 0.9% 500 ML 500 ML IV ONE (23:31)
[2020-10-21] MEDS ORDERED: SODIUM CHLORIDE 0.9% 1,000 ML IV SCH (23:45)
--- NOTE | 2020-10-21 23:52 | CT ---
EXAMINATION TYPE: CT abdomen pelvis wo con DATE OF EXAM: 10/21/2020 COMPARISON: 08/29/2020 HISTORY: Left hip pain; LLQ abd pain, low back pain, constipation CT DLP: 428.6 mGycm Automated exposure control for dose reduction was used. Images were obtained from the diaphragm to the floor the pelvis without contrast. FINDINGS: There are mild bilateral pleural effusions. Heart size is normal. There is no pericardial effusion. T here is some atelectasis at the lung bases. There are numerous hypodense areas throughout the liver. The bile ducts are not dilated. Liver measur es 20 cm. Spleen is intact. Stomach is intact. There is no pancreatic mass. There is bilateral hydronephrosis. Kidneys have normal size. There is mild to moderate abdominal asci malcolm fluid. Bladder distends smoothly. Uterus is anteverted. There is no evidence of a bowel obstruction. There is no retroperitoneal adenopathy. There is diffuse osteoblastic change throughout the visualized skeleton. There is T9 biconcave deformity with 25% los s of height. There is no evidence of pelvic fracture. IMPRESSION: Compared to last exam there is development of mild to moderate bilateral pleural effusions. There is moderate abdominal ascites that is significantly increased compared to old exam. I do not see evidence of a bowel obstruction. There is gas down to the rectum. There is bilateral hydronephrosis and hydroureter. Ureters not well evaluated due to the ascites flui d. No obstructing mass seen. Hydronephrosis increased compared to old exam. Diffuse hepatic metastatic disease. 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
[2020-10-22] MEDS ORDERED: NALOXONE 0.4 MG/ML 1 ML VIAL IV PRN (00:30)
[2020-10-22] MEDS ORDERED: HYDROmorphone 1 MG/ML 1 ML SYRINGE IVP PRN (00:39)
[2020-10-22] MEDS ORDERED: TRIMETHOBENZAMIDE 100 MG/ML 2 ML VIAL IM PRN (00:39)
[2020-10-22 02:21] LABS: Appearance,Urine Clear (Clear); Bacteria,Urine Rare /hpf; Bilirubin,Urine Negative (Negative); Blood,Urine Small (Negative); Color,Urine Yellow; Glucose,Urine (UA) Negative (Negative); Ketones,Urine 1+ (Negative); Leukocyte Esterase,Urine Trace (Negative); Nitrite,Urine Negative (Negative); PH, Urine 5.5 (5.0-8.0); Protein,Urine 1+ (Negative); RBC,Urine 9 /hpf (0-5); Specific Gravity,Urine 1.015 (1.001-1.035); Squamous Epithelial Cell,Urine <1 /hpf (0-4); Urobilinogen,Urine <2.0 mg/dL (<2.0); WBC,Urine 17 /hpf (0-5)
[2020-10-22 06:20] LABS: Albumin 2.6 g/dL (3.5-5.0); Potassium 4.5 mmol/L (3.5-5.1); Total Bilirubin 0.8 mg/dL (0.2-1.3); Total Protein 5.6 g/dL (6.3-8.2)
[2020-10-22 06:24] LABS: Anisocytosis Moderate; HCT 27.9 % (34.0-46.0); HGB 8.5 gm/dL (11.4-16.0); Hypochromasia Marked; MCH 28.6 pg (25.0-35.0); MCHC 30.4 g/dL (31.0-37.0); MCV 94.1 fL (80.0-100.0); Macrocytosis Slight; Mean Platelet Volume 7.9; Platelet Count 235 k/uL (150-450); Poikilocytosis Slight; RBC 2.96 m/uL (3.80-5.40); RDW 20.6 % (11.5-15.5)
[2020-10-22 07:09] LABS: Glucose,Whole Blood 76 mg/dL (75-99)
[2020-10-22] MEDS: DEXTROSE 5% IN WATER 1,000 ML with SODIUM BICARB (1 MEQ/ML) 150 ML IV SCH (11:45)
--- NOTE | 2020-10-22 13:04 | P.HPIM ---
History of Present Illness 55-year-old female patient with past medical history significant for breast cancer with metastasis to bone and brain presents to the emergency department today for evaluation of generalized abdominal pain with bloating. She is also e xperiencing decreased appetite with decreased food intake. Her oncologist Dr. Turner has stopped chemo due to it being ineffective, they are potentially starting a new therapy but have not heard yet. states that her symptoms started about 4-5 days ago and have gradually worsened. He denies any fever or chills. Denies vomiting. States she has several small bowel movements daily which is normal for her. She has had two today. He denies any black or bloody stool. He also reports an increase in confusion. States that episodes like she'll be sitting up and ask to sit up or be laying down and ask to lay down. Patient denies any recent rash, cough, shortness of breath, chest pain, back p ain, numbness, tingling, dizziness, weakness, hematuria, dysuria, urinary urgency, urinary frequency, headache, visual changes, or any other complaints. Patient is presently alert oriented 2-3. Baseline creatinine is within normal Present Creatinine Is 4.3 to Nephrology Evaluated the Patient Patient Had a CT of the Abdomen Which Showed Significant Metastasis Was Then Previous Imaging. Patient Had Chemotherapy and Radiation Therapy None of Which Appear to Be Beneficial and Her Cancer Continued to Get Worse. Oncology Was Consulted As Well. Patient's CT of the Abdomen Showed Moderate Bilateral Pleural Effusions Moderate Abdominal Ascites Bilateral Hydronephrosis and Hydroureter Diffuse He patic Metastases and Diffuse Osteoblastic Metastasis Review of Systems REVIEW OF SYSTEMS: CONSTITUTIONAL: No fever, no malaise, no fatigue. HEENT: No recent visual problems or hearing problems. Denied any sore throat. CARDIOVASCULAR: No chest pain, orthopnea, PND, no palpitations, no syncope. PULMONARY: No shortness of breath, no cough, no hemoptysis. GASTROINTESTINAL: As mentioned in HPI NEUROLOGICAL: No headaches, no weakness, no numbness. HEMATOLOGICAL: Denies any bleeding or petechiae. GENITOURINARY: Denies any burning micturition, frequency, or urgency. MUSCULOSKELETAL/RHEUMATOLOGICAL: Denies any joint pain, swelling, or any muscle pain. ENDOCRINE: Denies any polyuria or polydipsia. The rest of the 14-point review of systems is negative. 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, ear surgery, facial nerve surgery in [employer], bone disease when a child History of Any Multi-Drug Resistant Organisms: None Reported Additional Past Surgical History / Comment(s): Mastectomy (bilateral), lymph nodes removed from right side, meningioma removed, Past Anesthesia/Blood Transfusion Reactions: No Reported Reaction Past Psychological History: No Psychological Hx Reported Smoking Status: Never smoker Past Alcohol Use History: None Reported Past Drug Use History: None Reported - Past Family History Mother Family Medical History: Diabetes Mellitus, Thyroid Disorder Medications and Allergies Home Medications Medication Instructions Recorded Confirmed Type Multivitamins, Thera [Multivitamin 1 tab PO DAILY 11/11/18 10/21/20 History (formulary)] Cholecalciferol [Vitamin D3] 1,000 unit PO DAILY 11/12/18 10/21/20 History Calcitonin-[place] 200 Un/[place] 1 spray NASAL DAILY 10/21/20 10/21/20 History Hydrocodone/Acetaminophen [[place] 1 tab PO Q6HR PRN 10/21/20 10/21/20 History 5-325] Iron 18 mg PO DAILY 10/21/20 10/21/20 History Levothyroxine Sodium [Synthroid] 25 mcg PO DAILY 10/21/20 10/21/20 History Xgeva 120mg/1.7 Ml Vial 120 mg SQ Q30D 10/21/20 10/21/20 History Zolpidem [Ambien] 5 mg PO HS PRN 10/21/20 10/21/20 History diphenhydrAMINE HCL [Benadryl] 25 mg PO DAILY PRN 10/21/20 10/21/20 History Allergies Allergy/AdvReac Type Severity Reaction Status Date / Time amoxicillin Allergy Rash/Hives Verified 10/21/20 23:10 Physical Exam Vitals: Vital Signs Temp Pulse Pulse Resp BP BP Pulse Ox 10/22/20 07:54 97.9 F 86 20 132/81 99 10/22/20 01:35 97.7 F 86 16 135/83 99 10/21/20 23:57 75 16 113/69 98 10/21/20 22:03 85 16 129/86 10/21/20 20:57 98.7 F 108 H 16 100/66 99 Intake and Output 10/21/20 10/22/20 10/22/20 22:59 06:59 14:59 Other: # Voids 1 Weight 41.73 kg 41.73 kg PHYSICAL EXAMINATION: GENERAL: The patient is alert and oriented x2-3, not in any acute distress. Thin built cachectic HEENT: Pupils are round and equally reacting to light. EOMI. No scleral icterus. No conjunctival pallor. Normocephalic, atraumatic. No pharyngeal erythema. No thyromegaly. CARDIOVASCULAR: S1 and S2 present. No murmurs, rubs, or gallops. PULMONARY: Chest is clear to auscultation, no wheezing or crackles. ABDOMEN: Soft, tenderness in the left para umbilicul area, nondistended, normoactive bowel sounds. No palpable organomegaly. MUSCULOSKELETAL: No joint swelling or deformity. EXTREMITIES: No cyanosis, clubbing, or pedal edema. NEUROLOGICAL: Gross neurological examination did not reveal any focal deficits. SKIN: No rashes. Results CBC & Chem 7: 10/22/20 05:40 10/22/20 05:40 Labs: Abnormal Lab Results - Last 24 Hours (Table) 10/21/20 10/21/20 10/22/20 Range/Units 22:55 22:55 02:00 RBC 3.22 L (3.80-5.40) m/uL Hgb 9.5 L (11.4-16.0) gm/dL Hct 29.7 L (34.0-46.0) % MCHC (31.0-37.0) g/dL RDW 20.5 H (11.5-15.5) % Lymphocytes # 0.5 L (1.0-4.8) k/uL Chloride (98-107) mmol/L Carbon Dioxide 14 L (22-30) mmol/L BUN 89 H (7-17) mg/dL Creatinine 4.90 H (0.52-1.04) mg/dL Glucose (74-99) mg/dL Calcium 7.7 L (8.4-10.2) mg/dL AST 311 H (14-36) U/L Alkaline Phosphatase 992 H (38-126) U/L Total Protein 6.1 L (6.3-8.2) g/dL Albumin 2.9 L (3.5-5.0) g/dL Urine Protein 1+ H (Negative) Urine Ketones 1+ H (Negative) Urine Blood Small H (Negative) Ur Leukocyte Esterase Trace H (Negative) Urine RBC 9 H (0-5) /hpf Urine WBC 17 H (0-5) /hpf Urine Bacteria Rare H (None) /hpf 10/22/20 10/22/20 Range/Units 05:40 05:40 RBC 2.96 L (3.80-5.40) m/uL Hgb 8.5 L (11.4-16.0) gm/dL Hct 27.9 L (34.0-46.0) % MCHC 30.4 L (31.0-37.0) g/dL RDW 20.6 H (11.5-15.5) % Lymphocytes # (1.0-4.8) k/uL Chloride 109 H (98-107) mmol/L Carbon Dioxide 10 L (22-30) mmol/L BUN 84 H (7-17) mg/dL Creatinine 4.32 H (0.52-1.04) mg/dL Glucose 72 L (74-99) mg/dL Calcium 7.0 L (8.4-10.2) mg/dL AST 269 H (14-36) U/L Alkaline Phosphatase 841 H (38-126) U/L Total Protein 5.6 L (6.3-8.2) g/dL Albumin 2.6 L (3.5-5.0) g/dL Urine Protein (Negative) Urine Ketones (Negative) Urine Blood (Negative) Ur Leukocyte Esterase (Negative) Urine RBC (0-5) /hpf Urine WBC (0-5) /hpf Urine Bacteria (None) /hpf Microbiology - Last 24 Hours (Table) 10/22/20 02:00 Urine Culture - Preliminary Urine,Voided Thrombosis Risk Factor Assmnt - Choose All That Apply Any of the Below Risk Factors Present?: Yes Each Factor Represents 1 point: Age 41-60 years, Medical pt on bed rest Other Risk Factors: Yes Each Risk Factor Represents 2 Points: Patient confined to bed Thrombosis Risk Factor Assessment Total Risk Factor Score: 4 Thrombosis Risk Factor Assessment Level: Moderate Risk Assessment and Plan Plan: -Abdominal pain: Secondary to worsening metastasis of her breast cancer. Her pain medications although patient the has mild altered mental status secondary to these medications. Unfortunately we don't have any other choice except to use opiates for pain. -Acute renal failure secondary to obstructive uropathy from a breast cancer metastases nephrology evaluated the patient the patient continue with IV fluids at with IV fluids patient has some improvement in the serum creatinine there may be a prerenal component. -Altered mental status secondary to toxic encephalopathy from medications patient does have metastases to brain as well holding off on diphenhydramine Ambien but continuing with opiates for pain. -Anemia chronic -Related liver enzymes secondary to hepatic metastasis -Recent drive and she will not require any antibiotics -Breast cancer with significant metastasis. Prognosis is extremely poor will discuss with oncology patient probably will need to be hospice -Due to prophylaxis with subcutaneous heparin
[2020-10-22 14:18] VITALS: BMI 16.2
--- NOTE | 2020-10-22 15:32 | CONS ---
CONSULTATION REASON FOR CONSULTATION: Renal failure. HISTORY OF PRESENT ILLNESS: Patient is a 55-year-old female with history of breast cancer with metastases to bone and brain who presented to the hospital with complaints of diarrhea, generalized weakness and abdominal pain. The patient was recently on chemo, but apparently it was recently stopped, as it was not effective. No prior history of kidney diseases. Serum creatinine was 4.9 mg/dL on admission with previous creatinine 0.49 on 08/29/2020. Abdominal CT showed bilateral hydronephrosis. Diffuse hepatic metastatic disease was noted and mild to moderate bilateral pleural effusions. Urine output is not accurately charted, but it appears that patient has voided. Blood pressure is slightly on the lower side, although not less than 100 mmHg for systolic. Patient was not on any YANCI inhibitors or nonsteroidal anti-inflammatory agents prior to admission. PAST MEDICAL HISTORY: 1. Metastatic breast cancer to brain and bone. 2. History of facial paralysis. 3. History of bacterial meningitis. PAST SURGICAL HISTORY: 1. Mastectomy. 2. Removal of meningioma. 3. Removal of lymph nodes on the right side. SOCIAL HISTORY: Negative for smoking, drug abuse or alcohol abuse. MEDICATIONS: Medications prior to admission included multivitamins, vitamin D3, calcitonin, iron, Synthroid, Benadryl. ALLERGIES: ALLERGIES include AMOXICILLIN, which causes rash and hives. PHYSICAL EXAMINATION: Patient is comfortable, awake. She is lethargic, not in any acute distress. Blood pressure was 135/83, heart rate 86 per minute. She is afebrile. EXAMINATION OF THE HEART: S1 and S2. EXAMINATION OF LUNGS: Bilateral breath sounds are heard. Decreased breath sounds at bases. ABDOMEN: Soft, non-tender. Distended. Examination of lower extremities shows trace edema. 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 The patient is able to move her upper and lower extremities. She is weak, but no asymmetry noted in the peripheries. LABS: Sodium of 139, potassium 4.5, chloride 109. CO2 is 10, BUN 84, creatinine 4.32, hemoglobin 8.5 g/dL. ASSESSMENT: 1. Acute kidney injury, obstructive uropathy with bilateral hydronephrosis noted on ultrasound. We will consult Urology and place Preciado catheter. 2. Severe metabolic acidosis associated with renal failure. Start IV bicarb. 3. Metastatic breast cancer with metastases to the brain and spine. 4. Diarrhea prior to admission, possibly related to chemotherapy versus viral gastroenteritis. 5. Mental status changes secondary to metabolic encephalopathy. PLAN: Start IV bicarb. Insert Preciado catheter. If no improvement in renal function, will proceed with urology consult. Agree with plans for possible hospice care. Thank you for this consultation. Will continue to follow the patient with you during her hospitalization. AINSLEY / REY: [id number] /
--- NOTE | 2020-10-22 20:04 | P.CONS ---
History of Present Illness - Reason for Consult Consult date: 10/22/20 metastatic breast cancer Requesting physician: Gerald Colvin - Chief Complaint JACINTO, intractable nausea and vomiting - History of Present Illness Halie is a very pleasant female patient of Dr. soniya white who we are very well acquainted with. 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 She had recurrence in the scar in February 2015. She had staging with a questionable lesion in the lower sternum on a bone scan but not seen on CT. 05/18/15 she had bilateral mastectomies. 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 She had adjuvant chemotherapy and radiation, then femara. The sternal lesion was followed closely. Ultimately 07/2016 a biopsy performed, positive for ER positive metastatic breast cancer. She received radiation. No other metastases on staging PET. She was started on Faslodex. Ibrance was added in 2016. Since that time patient has had multiple progressions, and had multiple therapies including Haloven, Xeloda, Gemzar, piqray (PIK3 mutation), abraxane. 07/20 brain mets, XRT to head. She was felt to have generalized progression in early August. Unfortunately, there are no further lines of therapy. IO was ordered on a compassionate care basis but, patient has had progressive symptoms of malignancy, rather rapidly over the last few days. She has a rash that developed most recently (question if subcutaneous metastases), she comes in with ascites, hydronephrosis, elevating LFTs, acute kidney injury. Patient has not been able to hold down food or fluids for at least 3 days. 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, ear surgery, facial nerve surgery in [place], bone disease when a child History of Any Multi-Drug Resistant Organisms: None Reported Additional Past Surgical History / Comment(s): Mastectomy (bilateral), lymph nodes removed from right side, meningioma removed, Past Anesthesia/Blood Transfusion Reactions: No Reported Reaction Past Psychological History: No Psychological Hx Reported Smoking Status: Never smoker Past Alcohol Use History: None Reported Past Drug Use History: None Reported - Past Family History Mother Family Medical History: Diabetes Mellitus, Thyroid Disorder Medications and Allergies Home Medications Medication Instructions Recorded Confirmed Type Multivitamins, Thera [Multivitamin 1 tab PO DAILY 11/11/18 10/21/20 History (formulary)] Cholecalciferol [Vitamin D3] 1,000 unit PO DAILY 11/12/18 10/21/20 History Calcitonin-[place] 200 Un/[place] 1 spray NASAL DAILY 10/21/20 10/21/20 History Hydrocodone/Acetaminophen [[place] 1 tab PO Q6HR PRN 10/21/20 10/21/20 History 5-325] Iron 18 mg PO DAILY 10/21/20 10/21/20 History Levothyroxine Sodium [Synthroid] 25 mcg PO DAILY 10/21/20 10/21/20 History Xgeva 120mg/1.7 Ml Vial 120 mg SQ Q30D 10/21/20 10/21/20 History Zolpidem [Ambien] 5 mg PO HS PRN 10/21/20 10/21/20 History diphenhydrAMINE HCL [Benadryl] 25 mg PO DAILY PRN 10/21/20 10/21/20 History Allergies Allergy/AdvReac Type Severity Reaction Status Date / Time amoxicillin Allergy Rash/Hives Verified 10/21/20 23:10 Physical Exam Vitals: Vital Signs Temp Pulse Pulse Resp BP BP Pulse Ox 10/22/20 14:00 98.4 F 88 19 127/72 98 10/22/20 07:54 97.9 F 86 20 132/81 99 10/22/20 01:35 97.7 F 86 16 135/83 99 10/21/20 23:57 75 16 113/69 98 10/21/20 22:03 85 16 129/86 10/21/20 20:57 98.7 F 108 H 16 100/66 99 Intake and Output 10/22/20 10/22/20 10/22/20 06:59 14:59 22:59 Output Total 140 Balance -140 Output: Drainage 140 Right Abdomen 140 Other: # Voids 1 3 Weight 41.73 kg 41.73 kg - Constitutional General appearance: cooperative, mild distress, thin - EENT Eyes: anicteric sclerae, EOMI ENT: hearing grossly normal - Neck Neck: lymphadenopathy - Respiratory Respiratory: bilateral: CTA - Cardiovascular Heart sounds: normal: S1, S2 - Gastrointestinal General gastrointestinal: no absent bowel sounds, no decreased bowel sounds, distended, hepatomegaly, no hyperactive bowel sounds, no normal bowel sounds, no organomegaly, no rigid, no scaphoid, soft, no splenomegaly, tenderness, no umbilical hernia, no ventral hernia - Integumentary diffuse rash, question if subcutaneous metastases - Musculoskeletal Musculoskeletal: generalized weakness - Psychiatric Psychiatric: A&O x's 3, appropriate affect, intact judgment & insight Results CBC & Chem 7: 10/22/20 05:40 10/22/20 05:40 Labs: Abnormal Lab Results - Last 24 Hours (Table) 10/21/20 10/21/20 10/22/20 Range/Units 22:55 22:55 02:00 RBC 3.22 L (3.80-5.40) m/uL Hgb 9.5 L (11.4-16.0) gm/dL Hct 29.7 L (34.0-46.0) % MCHC (31.0-37.0) g/dL RDW 20.5 H (11.5-15.5) % Lymphocytes # 0.5 L (1.0-4.8) k/uL Chloride (98-107) mmol/L Carbon Dioxide 14 L (22-30) mmol/L BUN 89 H (7-17) mg/dL Creatinine 4.90 H (0.52-1.04) mg/dL Glucose (74-99) mg/dL Calcium 7.7 L (8.4-10.2) mg/dL AST 311 H (14-36) U/L Alkaline Phosphatase 992 H (38-126) U/L Total Protein 6.1 L (6.3-8.2) g/dL Albumin 2.9 L (3.5-5.0) g/dL Urine Protein 1+ H (Negative) Urine Ketones 1+ H (Negative) Urine Blood Small H (Negative) Ur Leukocyte Esterase Trace H (Negative) Urine RBC 9 H (0-5) /hpf Urine WBC 17 H (0-5) /hpf Urine Bacteria Rare H (None) /hpf 10/22/20 10/22/20 Range/Units 05:40 05:40 RBC 2.96 L (3.80-5.40) m/uL Hgb 8.5 L (11.4-16.0) gm/dL Hct 27.9 L (34.0-46.0) % MCHC 30.4 L (31.0-37.0) g/dL RDW 20.6 H (11.5-15.5) % Lymphocytes # (1.0-4.8) k/uL Chloride 109 H (98-107) mmol/L Carbon Dioxide 10 L (22-30) mmol/L BUN 84 H (7-17) mg/dL Creatinine 4.32 H (0.52-1.04) mg/dL Glucose 72 L (74-99) mg/dL Calcium 7.0 L (8.4-10.2) mg/dL AST 269 H (14-36) U/L Alkaline Phosphatase 841 H (38-126) U/L Total Protein 5.6 L (6.3-8.2) g/dL Albumin 2.6 L (3.5-5.0) g/dL Urine Protein (Negative) Urine Ketones (Negative) Urine Blood (Negative) Ur Leukocyte Esterase (Negative) Urine RBC (0-5) /hpf Urine WBC (0-5) /hpf Urine Bacteria (None) /hpf Microbiology - Last 24 Hours (Table) 10/22/20 02:00 Urine Culture - Preliminary Urine,Voided CT scan - abdomen: report reviewed CT scan - pelvis: report reviewed Assessment and Plan (1) Acute kidney injury Current Visit: Yes Status: Acute Priority: High Code(s): N17.9 - ACUTE KIDNEY FAILURE, UNSPECIFIED SNOMED Code(s): 44201092 (2) Ascites Current Visit: Yes Status: Acute Priority: High Code(s): R18.8 - OTHER ASCITES SNOMED Code(s): 226029065 (3) Breast cancer metastasized to bone Current Visit: Yes Status: Chronic Priority: High Code(s): C50.919 - MALIGNANT NEOPLASM OF UNSP SITE OF UNSPECIFIED FEMALE BREAST; C79.51 - SECONDARY MALIGNANT NEOPLASM OF BONE SNOMED Code(s): 860640011 Plan: Discussed the case with patient's over the phone. Discussed case with Internal Medicine, reviewed the chart, Dr. Montoya examined the patient and based on recent events of disease progression, reviewed case with primary Onc Dr. Turner. Patient's disease has progressed to the point of any treatment providing her with any meaningful response or QOL. Patient has had multiple lines of therapy. IO was going to be used on a compassionate basis. Approximately 40 minutes was spent discussing the case with RNs, Physicians as well as . Plan is for a family meeting in the morning, to discuss hospice. Symptom management attests: I have seen and examined patient, performed H&P, agreed with dictation, documented as a scribe
[2020-10-22] MEDS: HEPARIN SODIUM,PORCINE 5,000 UNIT/ML 1 ML VIAL SQ SCH (20:31)
[2020-10-23] MEDS: DEXTROSE 5% IN WATER 1,000 ML with SODIUM BICARB (1 MEQ/ML) 150 ML IV SCH (01:42)
[2020-10-23] MEDS: HEPARIN SODIUM,PORCINE 5,000 UNIT/ML 1 ML VIAL SQ SCH (07:57)
--- NOTE | 2020-10-23 09:32 | P.PN ---
Subjective Progress Note Date: 10/23/20 Principal diagnosis: Intractable N,V, JACINTO Pt is sitting up in bed when seen, she denies pain, LAURENCE, she cannot eat or drink much it just comes back up. Her is at bedside Objective - Vital Signs Vital signs: Vital Signs Temp 98.0 F 10/23/20 04:16 Pulse 95 10/23/20 04:16 Resp 18 10/23/20 04:16 BP 126/75 10/23/20 04:16 Pulse Ox 98 10/23/20 04:16 Intake & Output 10/22/20 10/23/20 10/23/20 18:59 06:59 18:59 Intake Total 1440 Output Total 140 Balance -140 1440 Weight 41.73 kg Intake: Intake, IV Titration 960 Amount Dextrose 5% in Water 1, 960 000 ml @ 80 mls/hr IV . [id number] LEX with Sodium Bicarb (1 Meq/ml) 150 ml Rx#:[id number] Oral 480 Output: Drainage 140 Right Abdomen 140 Other: # Voids 3 2 - Constitutional General appearance: Present: cooperative, no acute distress, thin - EENT EENT Comment(s): rt eye/facial palsy Eyes: Present: anicteric sclerae - Respiratory Details: resp even and unlabored - Cardiovascular Details: skin warm and dry to touch - Gastrointestinal General gastrointestinal: Present: soft - Integumentary Integumentary Comment(s): mult SQ nodules on abd-most c/w malignancy - Musculoskeletal Musculoskeletal: Present: generalized weakness - Psychiatric Psychiatric: Present: A&O x's 3, appropriate affect, intact judgment & insight - Labs CBC & Chem 7: 10/22/20 05:40 10/22/20 05:40 Labs: Microbiology - Last 24 Hours (Table) 10/22/20 02:00 Urine Culture - Preliminary Urine,Voided Assessment and Plan (1) Acute kidney injury Current Visit: Yes Status: Acute Priority: High Code(s): N17.9 - ACUTE KIDNEY FAILURE, UNSPECIFIED SNOMED Code(s): 33641657 (2) Ascites Current Visit: Yes Status: Acute Priority: High Code(s): R18.8 - OTHER ASCITES SNOMED Code(s): 778417190 (3) Breast cancer metastasized to bone Current Visit: Yes Status: Chronic Priority: High Code(s): C50.919 - MALIGNANT NEOPLASM OF UNSP SITE OF UNSPECIFIED FEMALE BREAST; C79.51 - SECONDARY MALIGNANT NEOPLASM OF BONE SNOMED Code(s): 600011293 Plan: Met with pt and . We discussed her cancer, her symptoms, most likely disease progression. Unfortunately there are no reasonable treatment options that would provide pt with either quality or quantity of life. We discussed hospice and what they can do to help the pt and her family with the transition to comfort only and allow natural whenever that may be. Life expectancy in days, maybe a few weeks. Discussed case with Attending who will discharge when pt ready to go home a little later today Pending discussion with Parts Counter Specialist and Hospice Nurse.
[2020-10-23 10:41] VITALS: PULSE 86; RESP 12
[2020-10-23 10:54] VITALS: BP 124/76; TEMP 98.5
[2020-10-23] MEDS ORDERED: hydrOXYzine HCL 25 MG TAB PO STA (11:53)
--- NOTE | 2020-10-23 15:59 | P.DS ---
Providers Date of admission: 10/21/20 23:58 Expected date of discharge: 10/23/20 Attending physician: Smith Farrell MD Consults: 10/22/20 00:32 Consult Physician Routine Consulting Provider: Vini Turner Consult Reason/Comments: Metastatic cancer Do you want consulting provider notified?: Yes Consult Physician Routine Consulting Provider: Karen Mars Consult Reason/Comments: Acute kidney injury; renal failure Do you want consulting provider notified?: Yes Primary care physician: Mahin Wilkinson Hospital Course: Final Diagnosis -Abdominal pain: Secondary to worsening metastasis of her breast cancer -Acute renal failure with possible prerenal component secondary to obstructive uropathy from a breast cancer metastases -Altered mental status secondary to toxic encephalopathy from medications patient does have metastases to brain as well -Anemia chronic -Elevated liver enzymes secondary to hepatic metastasis -Breast cancer with significant metastasis. Prognosis is extremely poor -DVT to prophylaxis -no code Discharge disposition Patient is being discharged in a stable condition with guarded prognosis to home. Patient will follow-up with Dr. Mahin Wilkinson in the outpatient setting upon discharge. Patient will continue with [facility] and has signed on to hospice services. Total time taken is greater than 35 minutes. Hospital course 55-year-old female patient with past medical history significant for breast cancer with metastasis to bone and brain presents to the emergency department today for evaluation of generalized abdominal pain with bloating. She is also experiencing decreased appetite with decreased food intake. Her oncologist Dr. Turner has stopped chemo due to it being ineffective, they are potentially starting a new therapy but have not heard yet. states that her symptoms started about 4-5 days ago and have gradually worsened. He denies any fever or chills. Denies vomiting. States she has several small bowel movements daily which is normal for her. She has had two today. He denies any black or bloody stool. He also reports an increase in confusion. States that episodes like she'll be sitting up and ask to sit up or be laying down and ask to lay down. Patient denies any recent rash, cough, shortness of breath, chest pain, back pain, numbness, tingling, dizziness, weakness, hematuria, dysuria, urinary urgency, urinary frequency, headache, visual changes, or any other complaints. Patient is presently alert oriented 2-3. Baseline creatinine is within normal Present Creatinine Is 4.3 to Nephrology Evaluated the Patient Patient Had a CT of the Abdomen Which Showed Significant Metastasis Was Then Previous Imaging. Patient Had Chemotherapy and Radiation Therapy None of Which Appear to Be Beneficial and Her Cancer Continued to Get Worse. Oncology Was Consulted As Well. 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 Family at the bedside Jadon and they have agreed to hospice and would like to continue with hospice comfort measures in the home. Oncology following. Patient also instructed to follow-up with primary care provider upon discharge. Currently no reports of chest pain, worsening shortness of breath, or palpitations. Patient is afebrile. No reports of nausea or vomiting and patient is tolerating diet. Patient will be discharged home today. Prognosis is poor. On exam vital signs are stable. Cardio S1, S2 are muffled. Respiratory system shows diminished breath sounds at the bases with no wheezing or rhonchi noted. Abdomen is soft and nontender. Nervous system shows diffuse weakness. Please refer to medication reconciliation sheet for a list of medications. Patient Condition at Discharge: Serious Plan - Discharge Summary New Discharge Prescriptions: Continue Multivitamins, Thera [Multivitamin (formulary)] 1 tab PO DAILY Cholecalciferol [Vitamin D3 (25 Mcg = 1000 Iu)] 1,000 unit PO DAILY diphenhydrAMINE HCL [Benadryl] 25 mg PO DAILY PRN PRN Reason: Allergy Symptoms Zolpidem [Ambien] 5 mg PO HS PRN PRN Reason: Insomnia Xgeva 120mg/1.7 Ml Vial 120 mg SQ Q30D Levothyroxine Sodium [Synthroid] 25 mcg PO DAILY Calcitonin-[place] 200 Un/[place] 1 spray NASAL DAILY Hydrocodone/Acetaminophen [[place] 5-325] 1 tab PO Q6HR PRN PRN Reason: Pain Iron 18 mg PO DAILY Discharge Medication List Multivitamins, Thera [Multivitamin (formulary)] 1 tab PO DAILY 11/11/18 [History] Cholecalciferol [Vitamin D3 (25 Mcg = 1000 Iu)] 1,000 unit PO DAILY 11/12/18 [History] Calcitonin-[place] 200 Un/[place] 1 spray NASAL DAILY 10/21/20 [History] Hydrocodone/Acetaminophen [[place] 5-325] 1 tab PO Q6HR PRN 10/21/20 [History] Iron 18 mg PO DAILY 10/21/20 [History] Levothyroxine Sodium [Synthroid] 25 mcg PO DAILY 10/21/20 [History] Xgeva 120mg/1.7 Ml Vial 120 mg SQ Q30D 10/21/20 [History] Zolpidem [Ambien] 5 mg PO HS PRN 10/21/20 [History] diphenhydrAMINE HCL [Benadryl] 25 mg PO DAILY PRN 10/21/20 [History] Follow up Appointment(s)/Referral(s): Mahin Wilkinson DO [Primary Care Provider] - 1-2 days ( states that he will take care of follow-up appointment) [facility], [NON-STAFF] - 1 Week Patient Instructions/Handouts: Breast Cancer in Women (DC), Brain Metastasis (DC), Encephalopathy (DC) Activity/Diet/Wound Care/Special Instructions: Patient is going home with hospice per family wishes - Hospice will contact patient at home Activity as tolerated Continue current diet Continue comfort measures Follow-up with Dr. Turner Discharge Disposition: HOME WITH HOSPICE
== END 2020-10-23 12:39 | disposition hospice, home (50) | DRG 682 ==
LOC: EC 20:52 → 4SSUR 23:58 → 5NMEDONC 10-22 19:00
PROVIDERS: ADMIT Internal Medicine; ATTEND Internal Medicine
DX: N17.9 Acute kidney failure, unspecified (principal); G92 Toxic encephalopathy; R64 Cachexia; C79.51 Secondary malignant neoplasm of bone; J90 Pleural effusion, not elsewhere classified; R18.8 Other ascites; E87.2 Acidosis; C79.31 Secondary malignant neoplasm of brain; C78.7 Secondary malignant neoplasm of liver and intrahepatic bile duct; Z68.1 Body mass index [BMI] 19.9 or less, adult; C50.919 Malignant neoplasm of unspecified site of unspecified female breast; Z66 Do not resuscitate; Z51.5 Encounter for palliative care; Z20.822 Contact with and (suspected) exposure to COVID-19; G89.3 Neoplasm related pain (acute) (chronic); D63.0 Anemia in neoplastic disease; N13.39 Other hydronephrosis; T40.605A Adverse effect of unspecified narcotics, initial encounter; Z17.0 Estrogen receptor positive status [ER+]; G51.0 Bell's palsy; R21 Rash and other nonspecific skin eruption; R19.7 Diarrhea, unspecified; Z79.899 Other long term (current) drug therapy; Z92.3 Personal history of irradiation; Z92.21 Personal history of antineoplastic chemotherapy; Z79.890 Hormone replacement therapy; Z86.61 Personal history of infections of the central nervous system; Z90.13 Acquired absence of bilateral breasts and nipples; Z86.69 Personal history of other diseases of the nervous system and sense organs; Z98.890 Other specified postprocedural states; Z88.0 Allergy status to penicillin; Z83.3 Family history of diabetes mellitus; Z83.49 Family history of other endocrine, nutritional and metabolic diseases
CPT/HCPCS: 36415; 74176; 80053; 81001; 82150; 83605; 83690; 84484; 85025; 87086; 87635; 93005; 96361; 96374; 96375; 99285